=== PATIENT | male | born 1960 | race Two or more races ===

== ENCOUNTER 2024-02-10 13:57 | Inpatient (IN) | payer OTHER, MEDICAID ==
[~2024-02-10] VITALS: Ht 165.1 cm; Wt 95.7 kg
[2024-02-10 15:59] LABS: Basophils # (auto) 0 10 ^3/uL (0-0.2); Basophils % (auto) 0.2 % (0.0-2.0); Eosinophils # (auto) 0 10 ^3/uL (0-0.8); Hematocrit 43.9 % (41.0-53.0); Hemoglobin 14.5 g/dL (13.5-17.5); Lymphocytes # (auto) 1.2 10 ^3/uL (0.4-5.4); Lymphocytes % (auto) 5.9 % (10.0-50.0); Mean Corpuscular Hemoglobin 31.4 pg (28.0-32.0); Mean Corpuscular Hgb Conc. 33.2 g/dL (32.0-36.0); Mean Corpuscular Volume 94.6 fL (80.0-100.0); Monocytes # (auto) 1.1 10 ^3/uL (0-1.3); Monocytes % (auto) 5.8 % (0.0-12.0); Neutrophils # (auto) 17.1 10 ^3/uL (1.6-8.6); Neutrophils % (auto) 88.1 % (37.0-80.0); Red Blood Cells 4.63 10^6/uL (4.5-5.90); Red Cell Distribution Width 14.8 % (11.8-14.3); White Blood Cell 19.4 10^3/uL (4.4-10.8)
[2024-02-10 16:08] LABS: Anion Gap 9 (5-15); Carbon Dioxide 24 mmol/L (20-30); Chloride 104 mmol/L (98-107); Potassium 4.2 mmol/L (3.5-5.1); Sodium 137 mmol/L (136-145)
[2024-02-10 16:09] LABS: Calcium 10.2 mg/dL (8.7-10.4)
[2024-02-10 16:12] LABS: Urine Bacteria FEW /hpf (None Seen); Urine Blood 1+ /uL (Negative); Urine Clarity Clear (Clear); Urine Color Yellow (Yellow); Urine Mucus FEW (None Seen); Urine Protein, UAD TRACE (Negative); Urine Specific Gravity 1.016 (1.001-1.035); Urine Urobilinogen Normal (Negative); Urine WBC 88 /hpf (0 - 3)
[2024-02-10 16:14] LABS: BUN/Creatinine Ratio 6.3 (10.0-20.0); Blood Urea Nitrogen 6 mg/dL (9-23); Glucose 104 mg/dL (74-106)
[2024-02-10 18:30] VITALS: PULSE 115; RESP 18; O2SAT 96
[2024-02-10] MEDS: cefTRIAXone 1GM/50ML D5W 50 ML IV ONE (18:35)
[2024-02-10] MEDS: SULFAMETHOX W/TRIMETH(800/160MG) DS TAB PO ONE (18:35)
[2024-02-10] MEDS ORDERED: DOCUSATE SOD 100 MG CAP PO PRN (20:30)
[2024-02-10] MEDS ORDERED: ONDANSETRON HCL 4 MG/2 ML VIAL IV PRN (20:30)
[2024-02-10] MEDS ORDERED: HYDROcodone-ACET 5/325MG TAB PO PRN (20:30)
[2024-02-10] MEDS: ACETAMINOPHEN 325 MG TAB PO ONE (20:52)
[2024-02-10] MEDS: SODIUM CHLOR 0.9% PF (SALINE LOCK) 10ML VIAL/SYR IV SCH (22:00)
[2024-02-11] VITALS (10 sets, daily range): BP systolic 111–130; BP diastolic 63–78; PULSE 82–100; RESP 17–20; TEMP 97.7–100.9; O2SAT 92–98
[2024-02-11] MEDS: ENOXAPARIN SOD 40 MG/0.4 ML SYRINGE SC SCH (09:43)
[2024-02-11] MEDS ORDERED: AMLO1TAB23 PO (09:48)
[2024-02-11] MEDS ORDERED: LOSA-534 PO (09:48)
[2024-02-11] MEDS: cefTRIAXone 2GM/50ML D5W 50 ML IV SCH (22:02)
[2024-02-12] VITALS (8 sets, daily range): BP systolic 102–119; BP diastolic 55–77; PULSE 63–88; RESP 16–17; TEMP 97.8–99.1; O2SAT 69–99
[2024-02-12] MEDS: ACETAMINOPHEN 325 MG TAB PO PRN (00:24)
[2024-02-12] MEDS: SODIUM CHLORIDE 0.9% 1,000 ML IV SCH (23:30)
[2024-02-13 01:00] VITALS: BP 134/82; PULSE 67; RESP 17; TEMP 98.3; O2SAT 95
[2024-02-13 05:00] VITALS: BP 126/86; PULSE 64; RESP 16; TEMP 98.4; O2SAT 97
[2024-02-13 08:00] VITALS: PULSE 63; PULSE 74; RESP 17; O2SAT 98
[2024-02-13 09:00] VITALS: BP 148/99; PULSE 68; RESP 20; TEMP 98.3; O2SAT 100
[2024-02-13] MEDS ORDERED: CIPR-173 PO (10:05)
== END 2024-02-13 12:30 | disposition home or self-care (01) | DRG 871 ==
LOC: ER 13:57 → TELE 20:28 → TELE-E-ADS 23:14
PROVIDERS: ADMIT Internal Medicine; ATTEND Family Medicine
DX: A41.9 Sepsis, unspecified organism (principal); G93.41 Metabolic encephalopathy; N10 Acute pyelonephritis; N13.8 Other obstructive and reflux uropathy; E11.9 Type 2 diabetes mellitus without complications; I10 Essential (primary) hypertension; E86.0 Dehydration; N40.1 Benign prostatic hyperplasia with lower urinary tract symptoms; B96.1 Klebsiella pneumoniae [K. pneumoniae] as the cause of diseases classified elsewhere
CPT/HCPCS: 36415; 71045; 74176; 80048; 81001; 82962; 83605; 85025; 87040; 87086; 87088; 87186; 96365; 99291; G0378

== ENCOUNTER 2024-02-29 02:50 | Emergency (ER) | payer OTHER, MEDICAID ==
[~2024-02-29] VITALS: Ht 165.1 cm; Wt 87.0 kg
[~2024-02-29 02:50] MED LIST: AMLO1TAB23 PO; CIPR-173 PO; LOSA-534 PO
[2024-02-29 03:23] LABS: Urine Bacteria None Seen /hpf (None Seen)
[2024-02-29 03:28] LABS: Urine Blood Negative /uL (Negative); Urine Clarity Clear (Clear); Urine Color Colorless (Yellow); Urine Protein, UAD Negative (Negative); Urine Specific Gravity 1.003 (1.001-1.035); Urine Urobilinogen Normal (Negative); Urine WBC <1 /hpf (0 - 3); Urine pH 6.5 (5.0-9.0)
[2024-02-29] MEDS: cefTRIAXone SOD 1,000 MG VL ONE (06:19)
[2024-02-29 06:20] VITALS: BP 137/95; PULSE 82; RESP 16; TEMP 98.2; O2SAT 96
[2024-02-29] MEDS: cefTRIAXone W LIDOCAINE 1 GM IM IM ONE (06:20)
[2024-02-29] MEDS: cloNIDine HCL 0.1 MG TAB PO ONE (06:26)
== END 2024-02-29 06:27 | disposition home or self-care (01) ==
LOC: ER 02:50
DX: R10.9 Unspecified abdominal pain (principal); I10 Essential (primary) hypertension; E11.9 Type 2 diabetes mellitus without complications; Z98.890 Other specified postprocedural states; Z79.899 Other long term (current) drug therapy
CPT/HCPCS: 81001; 96372; 99283; J0696

== ENCOUNTER 2024-03-04 00:48 | Emergency (ER) | payer OTHER, MEDICAID ==
[~2024-03-04] VITALS: Ht 165.1 cm; Wt 85.3 kg
[2024-03-04 01:49] LABS: Urine Bacteria None Seen /hpf (None Seen)
[2024-03-04 02:04] LABS: Urine Blood Negative /uL (Negative); Urine Clarity Clear (Clear); Urine Color Colorless (Yellow); Urine Protein, UAD Negative (Negative); Urine Specific Gravity 1.011 (1.001-1.035); Urine Urobilinogen Normal (Negative); Urine WBC 1 /hpf (0 - 3)
[2024-03-04 03:08] LABS: Basophils # (auto) 0 10 ^3/uL (0-0.2); Basophils % (auto) 0.6 % (0.0-2.0); Eosinophils # (auto) 0.1 10 ^3/uL (0-0.8); Eosinophils % (auto) 1.7 % (0.0-7.0); Hematocrit 37.9 % (41.0-53.0); Lymphocytes # (auto) 2.1 10 ^3/uL (0.4-5.4); Lymphocytes % (auto) 35.4 % (10.0-50.0); Mean Corpuscular Hemoglobin 31.5 pg (28.0-32.0); Mean Corpuscular Hgb Conc. 34.3 g/dL (32.0-36.0); Monocytes # (auto) 0.6 10 ^3/uL (0-1.3); Monocytes % (auto) 9.1 % (0.0-12.0); Neutrophils # (auto) 3.2 10 ^3/uL (1.6-8.6); Neutrophils % (auto) 53.2 % (37.0-80.0); Nucleated Red Blood Cells % 0.1 %; Red Blood Cells 4.12 10^6/uL (4.5-5.90); Red Cell Distribution Width 14.4 % (11.8-14.3); White Blood Cell 6.1 10^3/uL (4.4-10.8)
[2024-03-04 03:13] LABS: Alanine Aminotransferase 34 U/L (7-40); Albumin 4.5 g/dL (3.2-4.8); Alkaline Phosphatase 80 U/L (46-116); Anion Gap 6 (5-15); Aspartate Aminotransferase 14 U/L (13-40); Bilirubin, Total 0.5 mg/dL (0.2-1.0); Blood Urea Nitrogen 11 mg/dL (9-23); Calcium 9.6 mg/dL (8.7-10.4); Carbon Dioxide 27 mmol/L (20-30); Chloride 108 mmol/L (98-107); Glucose 107 mg/dL (74-106); Potassium 3.9 mmol/L (3.5-5.1); Sodium 141 mmol/L (136-145); Total Protein 7.6 g/dL (5.7-8.2)
[2024-03-04 05:21] VITALS: BP 143/89; PULSE 63; RESP 18; TEMP 97.8; O2SAT 98
[2024-03-04] MEDS ORDERED: NAP500T GT (06:11)
== END 2024-03-04 06:26 | disposition home or self-care (01) ==
LOC: ER 00:48
DX: R10.9 Unspecified abdominal pain (principal); E11.9 Type 2 diabetes mellitus without complications; I10 Essential (primary) hypertension; Z79.891 Long term (current) use of opiate analgesic; Z98.890 Other specified postprocedural states
CPT/HCPCS: 36415; 74176; 80053; 81001; 85025

== ENCOUNTER 2024-05-31 02:00 | Inpatient (IN) | payer OTHER, MEDICAID ==
[~2024-05-31] VITALS: Ht 165.1 cm; Wt 87.5 kg
[~2024-05-31 02:00] MED LIST changes: +CLON0.2T PO; +NAP500T GT
--- NOTE | 2024-05-31 02:27 | ED.PDOC ---
History of Present Illness HPI Comments 64-year-old male who came to ER due to flank pains. Patient has been experiencing bilateral flank pain since yesterday, left worse than the right. Denies any urinary symptoms such as dysuria or gross hematuria. Is concerned that he might have pyelonephritis again, just like last January 2024 where he got admitted. Chief Complaint: Flank Pain Time Seen by MD: 02:27 Reviewed Notes: Nurses Notes Allergies: Coded Allergies: NO KNOWN ALLERGIES (Unverified , 02/10/24) Home Meds Active Scripts Clonidine Hydrochloride (Clonidine Hcl) 0.2 Mg Tab, 1 TAB PO BIDP PRN, #10 TAB 0 Refills To be used if systolic pressures above 160 or diastolic pressures above 90. Prov:OMAR DURANT PAC 03/10/24 Naproxen (NAPROSYN TABLET) 500 Mg Tb, 500 MG GT BID for 10 Days, #20 TAB Prov:IFEANYI VAZQUEZ MD 03/04/24 Ciprofloxacin Hcl (Cipro) 500 Mg Tab, 1 TAB PO BID, #20 TAB Prov:TEMO DODSON MD 02/13/24 Reported Medications Losartan Potassium (Losartan Potassium) 50 Mg Tab, 50 MG PO BID, TAB 02/11/24 Amlodipine Besylate (Amlodipine Besylate) 10 Mg Tab, 1 TAB PO DAILY, #30 TAB 5 Refills 02/11/24 Information Source: Patient Mode of Arrival: Ambulatory Severity: Moderate Timing: Hours Duration: Intermittent Prehospital treatment: None Past Medical History PAST MEDICAL HISTORY: DM, HTN, UTI'S Surgical History: Hernia Repair Family History Family History: Reviewed,noncontributory to illness Social History Smoker: Non-Smoker Alcohol: Denies ETOH Use Drugs: Denies Drug Use Lives In: Home Constitutional: denies: chills, diaphoresis, fatigue, fever, malaise, sweats, weakness, others EENTM: denies: blurred vision, double vision, ear bleeding, ear discharge, ear drainage, ear pain, ear ringing, eye pain, eye redness, hearing loss, mouth pain, mouth swelling, nasal discharge, nose bleeding, nose congestion, nose pain, photophobia, tearing, throat pain, throat swelling, voice changes, others Respiratory: denies: cough, hemoptysis, orthopnea, SOB at rest, shortness of breath, SOB with excertion, stridor, wheezing, others Cardiovascular: denies: chest pain, dizzy spells, diaphoresis, Dyspnea on exertion, edema, irregular heart beat, left arm pain, lightheadedness, palpitations, PND, syncope, others Gastrointestinal: denies: abdomen distended, abdominal pain, blood streaked bowels, constipated, diarrhea, dysphagia, difficulty swallowing, hematemesis, melena, nausea, poor appetite, poor fluid intake, rectal bleeding, rectal pain, vomiting, others Genitourinary: reports: flank pain; denies: burning, dysuria, frequency, hematuria, incontinence, penile discharge, penile sore, pain, testicle pain, testicle swelling, urgency, others Neurological: denies: dizziness, fainting, headache, left sided numbness, left sided weakness, numbness, paresthesia, pre-existing deficit, right sided numbness, right sided weakness, seizure, speech problems, tingling, tremors, weakness, others Musculoskeletal: reports: back pain; denies: gout, joint pain, joint swelling, muscle pain, muscle stiffness, neck pain, others Integumetry: denies: bruises, change in color, change in hair/nails, dryness, laceration, lesions, lumps, rash, wounds, others Allergic/Immunocompromised: denies: Difficulty Healing, Frequent Infections, Hives, Itching, others Hematologic/Lymphatic: denies: anemia, blood clots, easy bleeding, easy bruising, swollen glands, others Endocrine: denies: excessive hunger, excessive sweating, excessive thirst, excessive urination, flushing, intolerance to cold, intolerance to heat, unexplained weight gain, unexplained weight loss, others Psychiatric: denies: anxiety, bipolar disorder, depression, hopeless, panic disorder, schizophrenia, sleepless, suicidal, others Physical Exam General Appearance: No Apparent Distress, Normal HEENT: Normal ENT Inspection, Pharynx Normal, TMs Normal Neck: Full Range of Motion, Non-Tender, Normal, Normal Inspection Respiratory: Chest Non-Tender, Lungs Clear, No Accessory Muscle Use, No Respiratory Distress, Normal Breath Sounds Cardiovascular: No Edema, No JVD, No Murmur, No Gallop, Normal Peripheral Pulses, Regular Rate/Rhythm Breast Exam: Deferred Gastrointestinal: No Organomegaly, Non Tender, No Pulsatile Mass, Normal Bowel Sounds, Soft, Tenderness (Left CVA) Genitalia: Deferred Pelvic: Deferred Rectal: Deferred Extremities: No calf tenderness, Normal capillary refill, Normal inspection, Normal range of motion, Non-tender, No pedal edema Musculoskeletal : Apperance: Normal Neurologic: Alert, 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 Was a procedure done?: No Differential Dx Considerations may include: Anemia, electrolyte imbalance, urinary tract infection, kidney stones, sepsis musculoskeletal pain X-Ray, Labs, Meds, VS Vital Signs Date Time Temp Pulse Resp B/P (MAP) Pulse Ox O2 Delivery O2 Flow Rate FiO2 05/31/24 02:09 98.5 109 16 140/88 (105) 98 Lab Test 05/31/24 02:33 05/31/24 02:11 Range/Units White Blood Count 6.6 4.4-10.8 10^3/uL Red Blood Count 4.29 L 4.5-5.90 10^6/uL Hemoglobin 13.3 L 13.5-17.5 g/dL Hematocrit 39.9 L 41.0-53.0 % Mean Corpuscular Volume 93.1 80.0-100.0 fL Mean Corpuscular Hemoglobin 31.1 28.0-32.0 pg Mean Corpuscular Hemoglobin Concent 33.4 32.0-36.0 g/dL Red Cell Distribution Width 14.8 H 11.8-14.3 % Platelet Count 289 140-450 10^3/uL Mean Platelet Volume 7.4 6.9-10.8 fL Neutrophils (%) (Auto) 57.9 37.0-80.0 % Lymphocytes (%) (Auto) 33.4 10.0-50.0 % Monocytes (%) (Auto) 6.7 0.0-12.0 % Eosinophils (%) (Auto) 1.6 0.0-7.0 % Basophils (%) (Auto) 0.4 0.0-2.0 % Neutrophils # (Auto) 3.8 1.6-8.6 10 ^3/uL Lymphocytes # (Auto) 2.2 0.4-5.4 10 ^3/uL Monocytes # (Auto) 0.4 0-1.3 10 ^3/uL Eosinophils # (Auto) 0.1 0-0.8 10 ^3/uL Basophils # (Auto) 0 0-0.2 10 ^3/uL Nucleated Red Blood Cells 0.0 % Sodium Level 142 136-145 mmol/L Potassium Level 3.8 3.5-5.1 mmol/L Chloride Level 108 H 98-107 mmol/L Carbon Dioxide Level 26 20-31 mmol/L Anion Gap 8 5-15 Blood Urea Nitrogen 10 9-23 mg/dL Creatinine 1.03 0.700-1.30 mg/dL Glomerular Filtration Rate Calc 81 >90 mL/min BUN/Creatinine Ratio 9.7 L 10.0-20.0 Serum Glucose 127 H 74-106 mg/dL Calcium Level 9.8 8.7-10.4 mg/dL Urine Color Colorless Yellow Urine Clarity Clear Clear Urine pH 6.0 5.0-9.0 Urine Specific [place] 1.003 1.001-1.035 Urine Protein Negative Negative Urine Ketones Negative Negative Urine Blood Negative Negative /uL Urine Nitrite Negative Negative Urine Bilirubin Negative Negative Urine Urobilinogen Normal Negative mg/dL Urine Leukocyte Esterase Negative Negative /uL Urine RBC <1 0 - 3 /hpf Urine WBC <1 0 - 3 /hpf Urine Squamous Epithelial Cells None seen <5 /hpf Urine Bacteria None seen None Seen /hpf Urine Glucose Normal Normal mg/dL PROCEDURE(s): ABPL - CT AB PEL WO CON-NO ORAL OR IV CT ABDOMEN: Visualized lower thorax: The evaluation of lung bases demonstrates no focal infiltrates or pleural effusion. The liver is normal in size. There is no intrahepatic biliary radicle dilatation. The gallbladder is normal and reveals no intrinsic abnormality. The common bile duct is not dilated. The pancreas is normal in size and shape. No focal lesion is seen within. The peripancreatic fat planes are normal. The spleen is normal in size and does not show any focal abnormality. Both adrenal glands are normal in size and morphology in this unenhanced CT scan. There is no significant retroperitoneal lymphadenopathy. The kidneys are normal in size with no hydronephrosis or renal calculi. Vessels: Scattered calcific atherosclerotic aorto-iliac plaques noted. Otherwise, the aorta, IVC and the mesenteric vessels cannot be commented in this unenhanced CT scan. Stomach and bowel: Small fat filled umbilical hernia. Left indirect inguinal omentocele. The bowel loops are unremarkable. There is no ascites. Skeletal system: Mild degenerative changes in the visualized thoracolumbar spine. Sclerotic lesion of approximate size 10 mm in the L4 vertebral body. Advised further evaluation with MRI lumbar spine without contrast if clinically indicated. Hemangioma noted in the T11 vertebral body. Grade 1 anterolisthesis of L5 over S1 vertebra due to break in pars interarticularis on the right side. The pelvic bones are unremarkable. CT PELVIS: Appendix: The appendix is unremarkable in appearance. Colon: Scattered colonic diverticula noted, predominantly in the sigmoid colon. Circumferential soft tissue density wall thickening noted in the sigmoid colon, due to underdistension / infective / inflammatory etiology like sigmoiditis. The rectum is unremarkable. Urinary bladder: Partially distended urinary bladder with circumferential, soft tissue density urinary bladder wall thickening (up to approximately 6 mm wall thickness), probably due to underdistension / cystitis. Advised urinalysis correlation. Pelvic organs: The prostate gland is enlarged in size (measuring approximately 6.3 x 5.1 x 6.1 cm with approximate volume 102 mL) with the median lobe indenting the base of the urinary bladder along with prostatic parenchymal calcifications. No significant pelvic lymphadenopathy is identified. No abnormal fluid collection is seen. IMPRESSION: 1. Scattered colonic diverticula noted, predominantly in the sigmoid colon. 2. Circumferential soft tissue density wall thickening noted in the sigmoid colon, due to underdistension / infective / inflammatory etiology like sigmoiditis. 3. No perisigmoid mesenteric fat stranding or free fluid or any collection. 4. No abdominal mass or adenopathy. 5. No ascites. 6. No free air. 7. Chronic and / or ancillary findings as described above. Time of 1ST Reevaluation: 02:20 Reevaluation 1ST: Unchanged Patient Education/Counseling: Diagnosis, Treatment Family Education/Counseling: No Family Present Departure 1 Departure Time of Disposition: 04:51 (Patient with sigmoiditis. We will treat patient with antibiotics and admit) Impression: Primary Impression: Sigmoiditis Disposition: 09 ADMITTED INPATIENT Admit to: Med Surg Condition: Serious Critical Care Note Critical Care Time?: Yes Critical care comment: Intractable flank pain Authorized and Performed by: Aimee Leone MD Total critical care time: Approximately 33 minutes Due to a high probability of clinically significant, life threatening deterioration, the patient required my highest level of preparedness to intervene emergently and I personally spent this critical care time directly and personally managing the patient. This critical care time included obtaining a history; examining the patient; pulse oximetry; ordering and review of studies; arranging urgent treatment with development of a management plan; evaluation of patient's response to treatment; frequent reassessment; and, discussions with other providers. This critical care time was performed to assess and manage the high probability of imminent, life-threatening deterioration that could result in multi-organ failure. It was exclusive of separately billable procedures and treating other patients and teaching time. Please see my other sections and the rest of the note for further information on patient assessment and treatment. Stability Stability form required: No Heart Score Heart Score: Heart Score Response (Comments) Value History N/A 0 EKG N/A 0 Age N/A 0 Risk Factors N/A 0 Troponin N/A 0 Total 0 I personally scribed for AIMEE LEONE MD ([email or web address]) on 05/31/24 at 02:27. Electronically submitted by Osman Hilton ([employer]). I personally scribed for AIMEE LEONE MD ([email or web address]) on 05/31/24 at 04:51. Electronically submitted by Osman Hilton ([email or web address]). AIMEE LEONE MD May 31, 2024 02:27
[2024-05-31] MEDS ORDERED: HYDROcodone-ACET 5/325MG TAB PO ONE (02:30)
[2024-05-31 02:33] LABS: Urine Bacteria None Seen /hpf (None Seen)
[2024-05-31 03:16] LABS: Chloride 108 mmol/L (98-107); Potassium 3.8 mmol/L (3.5-5.1); Sodium 142 mmol/L (136-145)
[2024-05-31 03:17] LABS: Anion Gap 8 (5-15); Calcium 9.8 mg/dL (8.7-10.4); Carbon Dioxide 26 mmol/L (20-31)
[2024-05-31 03:18] LABS: Basophils # (auto) 0 10 ^3/uL (0-0.2); Basophils % (auto) 0.4 % (0.0-2.0); Eosinophils # (auto) 0.1 10 ^3/uL (0-0.8); Eosinophils % (auto) 1.6 % (0.0-7.0); Hematocrit 39.9 % (41.0-53.0); Hemoglobin 13.3 g/dL (13.5-17.5); Lymphocytes # (auto) 2.2 10 ^3/uL (0.4-5.4); Lymphocytes % (auto) 33.4 % (10.0-50.0); Mean Corpuscular Hemoglobin 31.1 pg (28.0-32.0); Mean Corpuscular Hgb Conc. 33.4 g/dL (32.0-36.0); Mean Corpuscular Volume 93.1 fL (80.0-100.0); Monocytes # (auto) 0.4 10 ^3/uL (0-1.3); Monocytes % (auto) 6.7 % (0.0-12.0); Neutrophils # (auto) 3.8 10 ^3/uL (1.6-8.6); Neutrophils % (auto) 57.9 % (37.0-80.0); Platelet Count (auto) 289 10^3/uL (140-450); Red Blood Cells 4.29 10^6/uL (4.5-5.90); Red Cell Distribution Width 14.8 % (11.8-14.3); White Blood Cell 6.6 10^3/uL (4.4-10.8)
[2024-05-31 03:19] LABS: Urine Blood Negative /uL (Negative); Urine Clarity Clear (Clear); Urine Color Colorless (Yellow); Urine Protein, UAD Negative (Negative); Urine Specific Gravity 1.003 (1.001-1.035); Urine Urobilinogen Normal (Negative); Urine WBC <1 /hpf (0 - 3)
[2024-05-31 03:22] LABS: BUN/Creatinine Ratio 9.7 (10.0-20.0); Blood Urea Nitrogen 10 mg/dL (9-23); Glucose 127 mg/dL (74-106)
--- NOTE | 2024-05-31 04:11 | DVH ---
Examination: ABPL CLINICAL INDICATION: left flank pain COMPARISON: None. CONTRAST USED: None. TECHNIQUE: A plain CT study of the abdomen and pelvis is performed. The examination was performed w ith [address] scan is done according to ALARA (As Low as Reasonably Achievable). Multipl nael reconstructions were obtained. FINDINGS: The lack of intravenous contrast limits evaluation of solid organ and other structures, differentiati on / separation and intraluminal evaluation of vessels and ureter from surrounding structures, and ev aluation of organ or abnormal enhancement. CT ABDOMEN: Visualized lower thorax: The evaluation of lung bases demonstrates no focal infiltrates or pleural effusion. Unenhanced liver: The liver is normal in size. There is no intrahepatic biliary radicle dilatation. Gallbladder: The gallbladder is normal and reveals no intrinsic abnormality. The common bile duct is not dilated. Unenhanced pancreas: The pancreas is normal in size and shape. No focal lesion is seen within. The peripancreatic fat planes are normal. Unenhanced spleen: The spleen is normal in size and does not show any focal abnormality. Retroperitoneum: Both adrenal glands are normal in size and morphology in this unenhanced CT scan. There is no significant retroperitoneal lymphadenopathy. The kidneys are normal in size with no hydronephrosis or renal calculi. Vessels: Scattered calcific atherosclerotic aorto-iliac plaques noted. Otherwise, the aorta, IVC and the mesen teric vessels cannot be commented in this unenhanced CT scan. Stomach and bowel: Small fat filled umbilical hernia. Left indirect inguinal omentocele. The bowel loops are unremarkable. There is no ascites. Skeletal system: Mild degenerative changes in the visualized thoracolumbar spine. Sclerotic lesion of approximate size 10 mm in the L4 vertebral body. Advised further evaluation with MRI lumbar spine without contrast if clinically indicated. Hemangioma noted in the T11 vertebral body. Grade 1 anterolisthesis of L5 over S1 vertebra due to break in pars interarticularis on the right janice e. The pelvic bones are unremarkable. CT PELVIS: Appendix: The appendix is unremarkable in appearance. Colon: Scattered colonic diverticula noted, predominantly in the sigmoid colon. Circumferential soft tissue density wall thickening noted in the sigmoid colon, due to underdistensio n / infective / inflammatory etiology like sigmoiditis. The rectum is unremarkable. Urinary bladder: Partially distended urinary bladder with circumferential, soft tissue density urinary bladder wall th ickening (up to approximately 6 mm wall thickness), probably due to underdistension / cystitis. Advis ed urinalysis correlation. Pelvic organs: The prostate gland is enlarged in size (measuring approximately 6.3 x 5.1 x 6.1 cm with approximate v olume 102 mL) with the median lobe indenting the base of the urinary bladder along with prostatic par enchymal calcifications. No significant pelvic lymphadenopathy is identified. No abnormal fluid collection is seen. IMPRESSION: 1. Scattered colonic diverticula noted, predominantly in the sigmoid colon. 2. Circumferential soft tissue density wall thickening noted in the sigmoid colon, due to underdiste nsion / infective / inflammatory etiology like sigmoiditis. 3. No perisigmoid mesenteric fat stranding or free fluid or any collection. 4. No abdominal mass or adenopathy. 5. No ascites. 6. No free air. 7. Chronic and / or ancillary findings as described above. Electronically Signed 05/31/2024 04:04 Dylon Rodriguez
[2024-05-31] MEDS: IBUPROFEN 800 MG TAB PO ONE (04:15)
--- NOTE | 2024-05-31 05:43 | DVHHPRES ---
History of Present Illness Resident Creating Document: JOHNNY GILMAN RESIDENT History of Present Illness This is a 64-year-old male with past medical history of hypertension, BPH presented to the ED with a chief complaint of left flank pain and chills for 1 day prior to this admission Patient has been experiencing bilateral flank pain since yesterday, mostly on the left side and and than the right, crampy in nature 5/10 with no aggravating factor and relieved after bowel movement associated with chills. He also mentioned that he was having altered bowel habit for last 1 month mostly constipation and he mostly took cranberry juice to relieve the constipation. Family history began for colon cancer and mostly on the maternal side and his last colonoscopy was more than 10 years ago. Patient also mentioned he has elevated PSA level and he did 2 times prostate biopsy which came back normal and he is following with urologist. PCP: Dr. Glen Donohue Cardiovascular: HTN GI: Constipation Renal/: UTI, Benign prostatic enlarg. Past Surgical History Hernia repair 1 year ago Family History Family history significant for colon cancer and mostly on the maternal side Smoke: No ALCOHOL: occassional Drugs: None Lives: with Family Review of Systems Constitutional: Yes: Chills; No: Fever, Sweats, Weakness, Malaise, Other Eyes: No: Pain, Vision change, Conjunctivae inflammation, Eyelid inflammation, Other, Redness ENT: No: Ear pain, Ear discharge, Nose pain, Nose discharge, Nose congestion, Mouth pain, Mouth swelling, Throat pain, Throat swelling, Other Respiratory: No: Cough, Dry, Shortness of breath, SOB with excertion, Wheezing, Hemoptysis, Pleuritic Pain, Sputum, Wheezing, Other Cardiovascular: No: Chest Pain, Palpitations, Orthopnea, Paroxysmal Noc. Dyspne a, Edema, Lt Headedness, Other Gastrointestinal: Abdominal Pain, Constipation; No: Nausea, Vomiting, Diarrhea, Melena, Hematochezia, Other Genitourinary: No Dysuria, No Frequency, No Incontinence, No Hematuria, No Retention, No Other Musculoskeletal: No: other, neck pain, shoulder pain, arm pain, back pain, hand pain, leg pain, foot pain Skin: No: Rash, Lesions, Jaundice, Bruising, Other Neurological: No: Weakness, Numbness, Incoordination, Change in speech, Confusion, Seizures, Other Allergies: Coded Allergies: NO KNOWN ALLERGIES (Unverified , 02/10/24) Medications Current Medications Medications Dose Ordered Sig/Abraham Route Start Time Stop Time Status Last Admin Dose Admin Sodium Chloride 10 ml Q8HR IV 05/31/24 06:00 UNV Sodium Chloride 1,000 ml @ 75 mls/hr [id number] IV 05/31/24 05:45 UNV Acetaminophen 325 mg Q4HP PRN PO 05/31/24 05:45 UNV Acetaminophen/ Hydrocodone Bitart 1 tab Q4HP PRN PO 05/31/24 05:45 UNV Ondansetron HCl 4 mg Q4HP PRN IV 05/31/24 05:45 UNV Enoxaparin Sodium 40 mg DAILY SC 05/31/24 10:00 UNV Morphine Sulfate 2 mg Q4HPRN PRN IV 05/31/24 05:45 UNV Nitroglycerin 0.4 mg Q5MINP PRN SL 05/31/24 05:45 UNV Morphine Sulfate 2 mg Q30M PRN IV 05/31/24 05:45 UNV Exam Vital Signs Vital Signs Date Time Temp Pulse Resp B/P (MAP) Pulse Ox O2 Delivery O2 Flow Rate FiO2 05/31/24 02:09 98.5 109 16 140/88 (105) 98 General Appearance: Alert, Oriented X3, Cooperative, No acute distress, mild distress HEENT: Atraumatic, PERRLA, EOMI, Mucous membr. moist/pink Respiratory: Clear to auscultation, Normal air movement Cardiovascular: Regular rate, Normal S1, Normal S2, No murmurs Abdominal: Normal bowel sounds, Soft, No tenderness, No hepatospenomegaly, No masses Extremities: No clubbing, No cyanosis, No edema, Normal pulses, No tenderness/swelling Skin: No rashes, No breakdown, No significant lesion Neuro: Normal gait, Normal speech, Strength at 5/5 X4 ext, Normal tone, Sensation intact, Other (Grossly intact cranial nerves) Psych/Mental Status: Mental status NL, Mood NL Labs/Xrays Labs Test 05/31/24 02:33 05/31/24 02:11 Range/Units White Blood Count 6.6 4.4-10.8 10^3/uL Red Blood Count 4.29 L 4.5-5.90 10^6/uL Hemoglobin 13.3 L 13.5-17.5 g/dL Hematocrit 39.9 L 41.0-53.0 % Mean Corpuscular Volume 93.1 80.0-100.0 fL Mean Corpuscular Hemoglobin 31.1 28.0-32.0 pg Mean Corpuscular Hemoglobin Concent 33.4 32.0-36.0 g/dL Red Cell Distribution Width 14.8 H 11.8-14.3 % Platelet Count 289 140-450 10^3/uL Mean Platelet Volume 7.4 6.9-10.8 fL Neutrophils (%) (Auto) 57.9 37.0-80.0 % Lymphocytes (%) (Auto) 33.4 10.0-50.0 % Monocytes (%) (Auto) 6.7 0.0-12.0 % Eosinophils (%) (Auto) 1.6 0.0-7.0 % Basophils (%) (Auto) 0.4 0.0-2.0 % Neutrophils # (Auto) 3.8 1.6-8.6 10 ^3/uL Lymphocytes # (Auto) 2.2 0.4-5.4 10 ^3/uL Monocytes # (Auto) 0.4 0-1.3 10 ^3/uL Eosinophils # (Auto) 0.1 0-0.8 10 ^3/uL Basophils # (Auto) 0 0-0.2 10 ^3/uL Nucleated Red Blood Cells 0.0 % Sodium Level 142 136-145 mmol/L Potassium Level 3.8 3.5-5.1 mmol/L Chloride Level 108 H 98-107 mmol/L Carbon Dioxide Level 26 20-31 mmol/L Anion Gap 8 5-15 Blood Urea Nitrogen 10 9-23 mg/dL Creatinine 1.03 0.700-1.30 mg/dL Glomerular Filtration Rate Calc 81 >90 mL/min BUN/Creatinine Ratio 9.7 L 10.0-20.0 Serum Glucose 127 H 74-106 mg/dL Calcium Level 9.8 8.7-10.4 mg/dL Urine Color Colorless Yellow Urine Clarity Clear Clear Urine pH 6.0 5.0-9.0 Urine Specific [place] 1.003 1.001-1.035 Urine Protein Negative Negative Urine Ketones Negative Negative Urine Blood Negative Negative /uL Urine Nitrite Negative Negative Urine Bilirubin Negative Negative Urine Urobilinogen Normal Negative mg/dL Urine Leukocyte Esterase Negative Negative /uL Urine RBC <1 0 - 3 /hpf Urine WBC <1 0 - 3 /hpf Urine Squamous Epithelial Cells None seen <5 /hpf Urine Bacteria None seen None Seen /hpf Urine Glucose Normal Normal mg/dL Assessment/Plan Assessment/Plan Assessment and plan: # Left flank pain likely due to sigmoiditis, rule out colonic malignancy - Complaining of left flank pain, chills and constipation - CT abdomen pelvis revealed circumferential soft tissue density wall thickening noted in the sigmoid colon, due to under distension / infective / inflammatory etiology like sigmoiditis. - clear liquid diet - IV normal saline at 75 mL/hour - IV morphine 2 mg q.4 p.r.n. - IV ondansetron 4 mg q.4 p.r.n. - IV ceftriaxone 1 g daily and IV metronidazole 500 mg t.i.d. - FOBT - CEA - GI consultation # History of BPH - Flomax 0.4 mg daily # Hypertensive heart disease - Losartan 50 mg p.o. b.i.d. # PUD prophylaxis - Protonix 40 mg p.o. daily # DVT prophylaxis - Lovenox 40 mg sc daily Goal of care discussed with the patient for more than 20 minutes full code Plan of treatment discussed with Dr. Hammonds Plan discussed with: Patient, Other My Orders Orders - JOHNNY GILMAN RESIDENT Procedure Category Date Status Time Admit ADMIT 05/31/24 Transmitted 05:32 Code Status CODE 05/31/24 Transmitted 05:32 Sodium Chloride Lock PHA 05/31/24 Logged (Saline Lock Ns) 06:00 Sodium Chloride 0.9% PHA 05/31/24 Logged 05:45 Acetaminophen Tablet PHA 05/31/24 Logged (Tylenol Tablet) 05:45 Hydrocodone-Acet PHA 05/31/24 Logged 5/325mg Tab ([place] 05:45 Ondansetron Hcl PHA 05/31/24 Logged (Zofran) 05:45 Enoxaparin Sodium PHA 05/31/24 Logged (Lovenox) 10:00 Complete Blood Count LAB 06/01/24 Verified 04:00 Comprehensive LAB 06/01/24 Verified Metabolic Panel 04:00 Clear Liq Diet DIET 05/31/24 Transmitted Breakfast Morphine Sulfate PHA 05/31/24 Logged Injection 05:45 Nitroglycerin PHA 05/31/24 Logged Sublingual (Ntrostat 05:45 Morphine Sulfate PHA 05/31/24 Logged Injection 05:45 Oxygen By Nasal RT 05/31/24 Transmitted Cannula 05:32 Stat Ekg For Chest [facility] 05/31/24 In Process Pain 05:32 Notify Md Of Changes [facility] 05/31/24 In Process From Base 05:32 Museum [employer] Scheduler For [facility] 05/31/24 In Process 24 Hours 05:32 Emergency Dysrhythmia [facility] 05/31/24 In Process Protocol 05:32 Rhythm Strips Once [facility] 05/31/24 In Process Every Shift 05:32 Ceftriaxone Ivpb PHA 05/31/24 Verified Rocephin 10:00 Metronidazole Ivpb PHA 05/31/24 Verified Flagyl 06:00 Thyroid Stimulating LAB 05/31/24 Verified Hormone 05:39 Chest Portable XY 05/31/24 Verified 05:39 Date of Service: May 31, 2024 Billing Provider: PHIL HAMMONDS MD Common Visit Codes: 24400-SDCYXOW INP/OBS CARE (HIGH) Secondary Visit Codes: 16405-[id number] CARE PLAN 30 MINUTES JOHNNY GILMAN RESIDENT May 31, 2024 05:43 PHIL HAMMONDS MD May 31, 2024 10:24
[2024-05-31] MEDS ORDERED: HYDROcodone-ACET 5/325MG TAB PO PRN (05:45)
[2024-05-31] MEDS ORDERED: ACETAMINOPHEN 325 MG TAB PO PRN (05:45)
[2024-05-31] MEDS ORDERED: MORPHINE SULFATE INJ 2 MG/ml SYRG IV PRN ×2 (05:45)
[2024-05-31] MEDS ORDERED: NITROGLYCERIN 0.4 MG SL TAB SL PRN (05:45)
[2024-05-31] MEDS ORDERED: ONDANSETRON HCL 4 MG/2 ML VIAL IV PRN (05:45)
[2024-05-31] MEDS: ONDANSETRON HCL 4 MG/2 ML VIAL IV ONE (05:57)
[2024-05-31] MEDS: MORPHINE SULFATE 4 MG/ML SYR/VIAL IV ONE (05:57)
[2024-05-31] MEDS: SODIUM CHLOR 0.9% PF (SALINE LOCK) 10ML VIAL/SYR IV SCH (06:00)
[2024-05-31] MEDS ORDERED: metroNIDAZOLE 500MG/100ML 100 ML IV SCH (06:00)
[2024-05-31] MEDS: SODIUM CHLORIDE 0.9% 1,850 ML IV ONE (06:00)
[2024-05-31] MEDS: SODIUM CHLORIDE 0.9% 1,000 ML IV SCH (06:00)
[2024-05-31] MEDS: ceFAZolin 2 GM/D5W50ml 50 ML IV ONE (06:00)
[2024-05-31] MEDS: metroNIDAZOLE 500MG/100ML 100 ML IV ONE (06:01)
[2024-05-31 06:35] LABS: Carcinoembryonic Antigen 1.3 ng/mL (<=5.0)
[2024-05-31] MEDS: PANTOPRAZOLE 40 MG TAB PO ONE (06:40)
--- NOTE | 2024-05-31 07:31 | DVH ---
CHEST RADIOGRAPH Indication:shortness of breath Technique: Single frontal view of the chest was obtained Comparison: XY CHEST PORTABLE on DOS: 02/10/24 FINDINGS: Lines and Tubes: None Lungs: No focal consolidation. Pleura: No effusion. No pneumothorax. Cardiomediastinal contours: Unremarkable Bones: No acute osseous abnormality. IMPRESSION: 1. No acute cardiopulmonary disease.
[2024-05-31 09:00] VITALS: BP 139/87; PULSE 61; RESP 16; TEMP 97.8; O2SAT 98
[2024-05-31 09:26] VITALS: PULSE 61; RESP 16; O2SAT 98
[2024-05-31] MEDS ORDERED: TAMS0.4C39 PO (09:34)
[2024-05-31] MEDS ORDERED: cefTRIAXone 1GM/50ML D5W 50 ML IV SCH (10:00)
[2024-05-31] MEDS ORDERED: CIPROFLOXACIN 400MG/200ML 200 ML IV SCH (10:00)
[2024-05-31] MEDS: LOSARTAN POTASSIUM 50 MG TAB PO SCH (12:06)
[2024-05-31] MEDS: ENOXAPARIN SOD 40 MG/0.4 ML SYRINGE SC SCH (12:07)
[2024-05-31] MEDS: cefTRIAXone 2GM/50ML D5W 50 ML IV SCH (12:07)
--- NOTE | 2024-05-31 12:49 | DVHINCON2 ---
GI Consult Consult Note GI consult note Date of Consultation: 05/31/2024 Chief Complaint: Sigmoiditis Referring Physician: Dr. Pisano H&P: 64-year-old male admitted with flank pain Patient denies abdominal pain. No nausea or vomiting Patient has noticed recent constipation, after hernia surgery, bowel movement one day ago. No melena or red blood in stool Patient last colonoscopy more than 10 years ago, patient has two maternal uncles diagnosed with colon cancer No weight loss Past Medical History: DM, HTN, UTI Past Surgical History: Hernia repair Social History: NO smoking, drinking ETOH and use of illegal drugs. Family History: As above Review of Systems: Constitutional: no fever, chill, weight loss HEENT: no eye pain, no hearing loss, no oral lesion, no scleral icterus Heart: no chest pain, no chest pressure Lung: no cough, no dyspnea with exertion Abdomen: see HPI Physical exam: General: NAD, AAOX3 Chest: lung pimentel clear to auscultation Heart: RRR, no murmur Abdomen: non-distended, no tenderness to palpation, +BS Labs: Labs Test 05/31/24 07:11 05/31/24 02:33 05/31/24 02:11 Range/Units Lactic Acid Level 0.7 0.4-2.0 mmol/L White Blood Count 6.6 4.4-10.8 10^3/uL Red Blood Count 4.29 L 4.5-5.90 10^6/uL Hemoglobin 13.3 L 13.5-17.5 g/dL Hematocrit 39.9 L 41.0-53.0 % Mean Corpuscular Volume 93.1 80.0-100.0 fL Mean Corpuscular Hemoglobin 31.1 28.0-32.0 pg Mean Corpuscular Hemoglobin Concent 33.4 32.0-36.0 g/dL Red Cell Distribution Width 14.8 H 11.8-14.3 % Platelet Count 289 140-450 10^3/uL Mean Platelet Volume 7.4 6.9-10.8 fL Neutrophils (%) (Auto) 57.9 37.0-80.0 % Lymphocytes (%) (Auto) 33.4 10.0-50.0 % Monocytes (%) (Auto) 6.7 0.0-12.0 % Eosinophils (%) (Auto) 1.6 0.0-7.0 % Basophils (%) (Auto) 0.4 0.0-2.0 % Neutrophils # (Auto) 3.8 1.6-8.6 10 ^3/uL Lymphocytes # (Auto) 2.2 0.4-5.4 10 ^3/uL Monocytes # (Auto) 0.4 0-1.3 10 ^3/uL Eosinophils # (Auto) 0.1 0-0.8 10 ^3/uL Basophils # (Auto) 0 0-0.2 10 ^3/uL Nucleated Red Blood Cells 0.0 % Sodium Level 142 136-145 mmol/L Potassium Level 3.8 3.5-5.1 mmol/L Chloride Level 108 H 98-107 mmol/L Carbon Dioxide Level 26 20-31 mmol/L Anion Gap 8 5-15 Blood Urea Nitrogen 10 9-23 mg/dL Creatinine 1.03 0.700-1.30 mg/dL Glomerular Filtration Rate Calc 81 >90 mL/min BUN/Creatinine Ratio 9.7 L 10.0-20.0 Serum Glucose 127 H 74-106 mg/dL Hemoglobin A1c 5.0 <5.7 % A1C Calcium Level 9.8 8.7-10.4 mg/dL Carcinoembryonic Antigen 1.30 <=5.0 ng/mL Vitamin B12 Level 463 211-911 pg/mL Vitamin D 25-Hydroxy 60.2 30.0-100 ng/mL Thyroid Stimulating Hormone (TSH) 2.90 0.55-4.78 uIU/mL Urine Color Colorless Yellow Urine Clarity Clear Clear Urine pH 6.0 5.0-9.0 Urine Specific [place] 1.003 1.001-1.035 Urine Protein Negative Negative Urine Ketones Negative Negative Urine Blood Negative Negative /uL Urine Nitrite Negative Negative Urine Bilirubin Negative Negative Urine Urobilinogen Normal Negative mg/dL Urine Leukocyte Esterase Negative Negative /uL Urine RBC <1 0 - 3 /hpf Urine WBC <1 0 - 3 /hpf Urine Squamous Epithelial Cells None seen <5 /hpf Urine Bacteria None seen None Seen /hpf Urine Glucose Normal Normal mg/dL Imaging: CT abdomen pelvis IMPRESSION: 1. Scattered colonic diverticula noted, predominantly in the sigmoid colon. 2. Circumferential soft tissue density wall thickening noted in the sigmoid colon, due to underdistension / infective / inflammatory etiology like sigmoiditis. 3. No perisigmoid mesenteric fat stranding or free fluid or any collection. 4. No abdominal mass or adenopathy. 5. No ascites. 6. No free air. 7. Chronic and / or ancillary findings as described above. Assessment: sigmoiditis, possible early diverticulitis Plan: -discussed with Dr. Rodriguez Continue antibiotic Clear liquid diet advance diet as tolerated Monitor labs Follow-up in GI clinic in 4-6 weeks, for possible plan of elective colonoscopy Thank you for this consult Date of Service: May 31, 2024 Billing Provider: CHRISTOS DODSON Common Visit Codes: CONSULT ONLY Consultation Codes: [id number] CONSULT <45MIN CHRISTOS DODSON May 31, 2024 12:49
[2024-05-31 13:00] VITALS: BP 122/80; PULSE 59; RESP 14; TEMP 97.7; O2SAT 98
[2024-05-31] MEDS: metroNIDAZOLE 500MG/100ML 100 ML IV SCH (14:00)
--- NOTE | 2024-05-31 14:17 | DVHPNRES ---
Progress Note Date Seen: May 31, 2024 Resident Creating Document: NACHO MIRANDA RESIDENT Has the PT tested + for MRSA If YES, has PT been informed?: No Medical Necessity Reason Pt with a Central, PICC or Fol: No Subjective Review of Systems This is a 64-year-old male with past medical history of hypertension, BPH presented to the ED with a chief complaint of left flank pain and chills for 1 day prior to this admission without evidence of fever. The Patient has been experiencing bilateral flank pain since yesterday, but is worse on the left side compared to the right, Thepatient describes the pain as crampy in nature and initially rated as 8/10 with no aggravating factor and relieved after bowel movement associated with chills. He also mentioned that he was having altered bowel habit for last 1 month mostly constipation and he mostly took cranberry juice to relieve the constipation. Family history began for colon cancer and mostly on the maternal side and his last colonoscopy was more than 10 years ago. Patient also mentioned he has elevated PSA level and he did 2 times prostate biopsy which came back normal and he is following with urologist. Initial chest x-ray was performed which was unremarkable. CT scan of the abdomen and pelvis showed colonic diverticula predominantly in the sigmoid colon with circumferential soft tissue wall thickening at the sigmoid colon. The patient was initially started on IV metronidazole and ceftriaxone IV. Patient was admitted for further assessment and management. Patient seen and examined at bedside. Upon my examination, the patient reports mild to moderate left flank pain rated as 5/10 on the pain scale with no specific pattern of radiation. The patient denies fever, chills, diarrhea, constipation at this time. We increase ceftriaxone dose to 2 g IV for sigmoid diverticulitis. We place the patient initially NPO, currently on clear liquid diet. We started the patient on losartan 100 mg q.d. and we will monitor blood pressure closely. Patient had no additional concerns/complaints at this time. ROS Constitutional: Denies weight loss, fever and chills. HEENT: Denies changes in vision and hearing. Respiratory: Denies shortness of breath and cough Cardiovascular: Denies chest discomfort or palpitations GI: Denies abdominal pain, nausea, vomiting and diarrhea. : Reports mild to mod left flank pain. Denies dysuria and urinary frequency. Musculoskeletal: Denies myalgias and joint pain Skin: Denies rash and pruritus. Neurological: Denies dizziness, headache, vision or hearing problems Objective vital signs Vital Sign Date Time Temp Pulse Resp B/P (MAP) Pulse Ox O2 Delivery O2 Flow Rate FiO2 05/31/24 13:00 97.7 59 14 122/80 (94) 98 97.7 05/31/24 09:26 Room Air* 0 21 Total Intake and Output 05/30/24 05/30/24 05/31/24 15:00 23:00 07:00 Intake Total 100 ml Balance 100 ml medications Current Medications Medications Dose Ordered Sig/Abraham Route Start Time Stop Time Status Last Admin Dose Admin Sodium Chloride 10 ml Q8HR IV 05/31/24 06:00 05/31/24 06:00 10 ML Sodium Chloride 1,000 ml @ 75 mls/hr [id number] IV 05/31/24 05:45 05/31/24 06:00 75 MLS/HR Acetaminophen 325 mg Q4HP PRN PO 05/31/24 05:45 Acetaminophen/ Hydrocodone Bitart 1 tab Q4HP PRN PO 05/31/24 05:45 Ondansetron HCl 4 mg Q4HP PRN IV 05/31/24 05:45 Enoxaparin Sodium 40 mg DAILY SC 05/31/24 10:00 05/31/24 12:07 40 MG Morphine Sulfate 2 mg Q4HPRN PRN IV 05/31/24 05:45 Nitroglycerin 0.4 mg Q5MINP PRN SL 05/31/24 05:45 Morphine Sulfate 2 mg Q30M PRN IV 05/31/24 05:45 Metronidazole 100 ml @ 100 mls/hr TID IV 05/31/24 14:00 Pantoprazole Sodium 40 mg DAILY@0600 PO 06/01/24 06:00 Ceftriaxone Sodium/Dextrose 50 ml @ 50 mls/hr DAILY@0900 IV 05/31/24 11:30 05/31/24 12:07 50 MLS/HR Losartan Potassium 100 mg DAILY PO 06/01/24 10:00 Tamsulosin HCl 0.4 mg QPM PO 05/31/24 18:00 Examination Physical Examination General: Patient alert and oriented in person, place and time. Patient following commands. HEENT: Normocephalic, atraumatic, moist mucous membranes Respiratory/pulmonary: Clear lungs bilaterally, no associated crackles or wheezes. Cardiovascular: Normal heart sounds S1 and S2 with no associated murmurs Abdomen: Abdomen nondistended, there mild to mod pain to palpation at the left flank. no palpable masses. Extremities: There is no peripheral edema present at the lower extremities. Peripheral Pulses: 3+ Radial (R). 3+ Radial (L). 3+ Dorsalis pedis (R). 3+ Dorsalis pedis(L) Skin: No rashes or pruritus, there is no sacral edema present at this time. Neurological: Intact cranial nerves with no focal neurologic deficits laboratory and microbiology Laboratory Tests 05/31/24 02:33 Test 05/31/24 02:33 Range/Units Serum Glucose 127 H 74-106 mg/dL Problem List/Assessment/Plan Problem List/Assessment/Plan Assessment/Plan Acute abdominal pain (left flank) likely due to sigmoid diverticulitis Ruled out colonic malignancy -patient initially presented with left flank pain associated with chills but no fever. WBC on normal range -CT scan of the abdomen and pelvis showed colonic diverticula predominantly in the sigmoid colon associated with circumferential soft tissue wall thickening noted in the sigmoid colon consistent with sigmoiditis -continue clear liquid diet -continue IV fluids at 75 cc/hour -continue morphine 2 mg q.4 p.r.n. -Increased ceftriaxone to 2 g daily IV -Continue metronidazole 500mg IV Q8 -FOBT still pending -CEA came back at 1.30, on normal range -GI on board Primary hypertension -Start losartan 100 mg q.d. -monitor blood pressure closely Hx of BPH -Start tamsulosin 0.4mg QPM -Monitor symptoms PUD prophylaxys -Pantoprazole 40mg po QD DVT prophylaxys -Enoxaprin 40mg sc QD Goals of care discussed with the patient at bedside for > 23min, FULL CODE Plan discussed with Dr. Handley Plan discussed with: Patient My Orders My Orders Orders - NACHO MIRANDA Procedure Category Date Status Time Ceftriaxone 2gm/50ml PHA 05/31/24 In Process D5w (Rocephin 2gm/5 11:30 Losartan Tablet PHA 06/01/24 In Process (Cozaar Tablet) 10:00 Tamsulosin PHA 05/31/24 In Process Hydrochloride (Flomax) 18:00 Date of Service: May 31, 2024 Billing Provider: JOAO HANDLEY MD Common Visit Codes: [id number] INP/OBS CARE(HIGH) Secondary Visit Codes: [id number] CARE PLAN 30 MINUTES NACHO MIRANDA May 31, 2024 14:17 JOAO HANDLEY MD May 31, 2024 20:30
[2024-05-31 16:44] VITALS: BP 119/81; PULSE 95; RESP 16; TEMP 98.2; O2SAT 99
[2024-05-31] MEDS: TAMSULOSIN HYDROCHLORIDE 0.4 MG CAP PO SCH (18:00)
[2024-05-31 21:00] VITALS: BP 125/83; PULSE 68; RESP 18; TEMP 98.6; O2SAT 95
[2024-06-01 01:00] VITALS: BP 124/76; PULSE 60; RESP 18; TEMP 98.2; O2SAT 94
[2024-06-01 05:00] VITALS: BP 124/76; PULSE 63; RESP 16; TEMP 97.8; O2SAT 97
[2024-06-01 05:37] LABS: Basophils # (auto) 0 10 ^3/uL (0-0.2); Basophils % (auto) 0.3 % (0.0-2.0); Eosinophils # (auto) 0.1 10 ^3/uL (0-0.8); Hematocrit 35.9 % (41.0-53.0); Hemoglobin 12.1 g/dL (13.5-17.5); Lymphocytes # (auto) 1.4 10 ^3/uL (0.4-5.4); Lymphocytes % (auto) 26.1 % (10.0-50.0); Mean Corpuscular Hemoglobin 31.4 pg (28.0-32.0); Mean Corpuscular Hgb Conc. 33.8 g/dL (32.0-36.0); Mean Corpuscular Volume 92.9 fL (80.0-100.0); Monocytes # (auto) 0.4 10 ^3/uL (0-1.3); Neutrophils # (auto) 3.3 10 ^3/uL (1.6-8.6); Neutrophils % (auto) 63.6 % (37.0-80.0); Platelet Count (auto) 252 10^3/uL (140-450); Red Blood Cells 3.86 10^6/uL (4.5-5.90); White Blood Cell 5.3 10^3/uL (4.4-10.8)
[2024-06-01 05:57] LABS: Alanine Aminotransferase 16 U/L (7-40); Albumin 3.8 g/dL (3.2-4.8); Alkaline Phosphatase 62 U/L (46-116); Anion Gap 6 (5-15); Aspartate Aminotransferase 9 U/L (13-40); BUN/Creatinine Ratio 6.8 (10.0-20.0); Bilirubin, Total 0.8 mg/dL (0.2-1.0); Blood Urea Nitrogen 6 mg/dL (9-23); Calcium 9.2 mg/dL (8.7-10.4); Carbon Dioxide 27 mmol/L (20-31); Chloride 109 mmol/L (98-107); Glucose 101 mg/dL (74-106); Potassium 3.7 mmol/L (3.5-5.1); Sodium 142 mmol/L (136-145)
[2024-06-01 05:58] LABS: Total Protein 6.4 g/dL (5.7-8.2)
[2024-06-01] MEDS: PANTOPRAZOLE 40 MG TAB PO SCH (06:26)
[2024-06-01 09:00] VITALS: BP 123/81; PULSE 58; RESP 17; TEMP 97.6; O2SAT 99
[2024-06-01] MEDS: LOSARTAN POTASSIUM 50 MG TAB PO SCH (09:50)
[2024-06-01] MEDS ORDERED: METR-344 PO (10:48)
[2024-06-01] MEDS ORDERED: CIPR-173 PO (10:48)
--- NOTE | 2024-06-01 10:50 | DVHDS2 ---
Discharge Summary Date of Admission May 31, 2024 at 05:32 Date of Discharge: Jun 01, 2024 Labs/Diagnostic Data: Laboratory Results Test 06/01/24 04:56 05/31/24 12:39 05/31/24 07:11 05/31/24 02:33 White Blood Count 5.3 10^3/uL (4.4-10.8) Red Blood Count 3.86 10^6/uL (4.5-5.90) Hemoglobin 12.1 g/dL (13.5-17.5) Hematocrit 35.9 % (41.0-53.0) Mean Corpuscular Volume 92.9 fL (80.0-100.0) Mean Corpuscular Hemoglobin 31.4 pg (28.0-32.0) Mean Corpuscular Hemoglobin Concent 33.8 g/dL (32.0-36.0) Red Cell Distribution Width 14.0 % (11.8-14.3) Platelet Count 252 10^3/uL (140-450) Mean Platelet Volume 7.2 fL (6.9-10.8) Neutrophils (%) (Auto) 63.6 % (37.0-80.0) Lymphocytes (%) (Auto) 26.1 % (10.0-50.0) Monocytes (%) (Auto) 8.0 % (0.0-12.0) Eosinophils (%) (Auto) 2.0 % (0.0-7.0) Basophils (%) (Auto) 0.3 % (0.0-2.0) Neutrophils # (Auto) 3.3 10 ^3/uL (1.6-8.6) Lymphocytes # (Auto) 1.4 10 ^3/uL (0.4-5.4) Monocytes # (Auto) 0.4 10 ^3/uL (0-1.3) Eosinophils # (Auto) 0.1 10 ^3/uL (0-0.8) Basophils # (Auto) 0 10 ^3/uL (0-0.2) Nucleated Red Blood Cells 0.0 % Sodium Level 142 mmol/L (136-145) Potassium Level 3.7 mmol/L (3.5-5.1) Chloride Level 109 mmol/L (98-107) Carbon Dioxide Level 27 mmol/L (20-31) Anion Gap 6 (5-15) Blood Urea Nitrogen 6 mg/dL (9-23) Creatinine 0.88 mg/dL (0.700-1.30) Glomerular Filtration Rate Calc 95 mL/min (>90) BUN/Creatinine Ratio 6.8 (10.0-20.0) Serum Glucose 101 mg/dL (74-106) Calcium Level 9.2 mg/dL (8.7-10.4) Total Bilirubin 0.8 mg/dL (0.2-1.0) Aspartate Amino Transferase (AST) 9 U/L (13-40) Alanine Aminotransferase (ALT) 16 U/L (7-40) Alkaline Phosphatase 62 U/L (46-116) Total Protein 6.4 g/dL (5.7-8.2) Albumin 3.8 g/dL (3.2-4.8) Stool Occult Blood Negative (Negative) Stool Occult Blood Sample #3 (Negative) Lactic Acid Level 0.7 mmol/L (0.4-2.0) Hemoglobin A1c 5.0 % A1C (<5.7) Carcinoembryonic Antigen 1.30 ng/mL (<=5.0) Vitamin B12 Level 463 pg/mL (211-911) Vitamin D 25-Hydroxy 60.2 ng/mL (30.0-100) Thyroid Stimulating Hormone (TSH) 2.90 uIU/mL (0.55-4.78) Test 05/31/24 02:11 Urine Color Colorless (Yellow) Urine Clarity Clear (Clear) Urine pH 6.0 (5.0-9.0) Urine Specific [place] 1.003 (1.001-1.035) Urine Protein Negative (Negative) Urine Ketones Negative (Negative) Urine Blood Negative /uL (Negative) Urine Nitrite Negative (Negative) Urine Bilirubin Negative (Negative) Urine Urobilinogen Normal mg/dL (Negative) Urine Leukocyte Esterase Negative /uL (Negative) Urine RBC <1 /hpf (0 - 3) Urine WBC <1 /hpf (0 - 3) Urine Squamous Epithelial Cells None seen /hpf (<5) Urine Bacteria None seen /hpf (None Seen) Urine Glucose Normal mg/dL (Normal) Other Laboratory Tests 06/01/24 04:56 Brief Hx & Hospital Course: Final diagnoses: Acute diverticulitis Hypertension BPH 64-year-old male was admitted for left flank pain. He has diverticulitis He was given clear liquid diet and IV fluids and IV antibiotics Overnight he is improved He is asymptomatic now except for some mild pain We will advance his diet for lunch and then he can go home on Cipro and Flagyl for 7 days Follow up with the PCP as soon as possible Advance diet as tolerated Condition at Discharge: Stable Final Diagnosis/Problems List Diverticulitis Discharge Disposition: Home SNF Discharge Will this Physician continue t: No Discharge Instruct/Medications Diet: Cardiac 2g Na,low cholest Activity: No Restrictions, As Tolerated Follow Up/Referral: PCP as soon as possible Medications: Cipro and Flagyl for 7 days Discharge Statement: "Patient was advised to return to the ER or call 911 if any headaches, dizziness, shortness of breath, chest pain, abdominal pain, bleeding, fevers, or worsening of medical condition. Patient was counseled about treatment plan, medications, possible side effects, patientverbalized understanding. All questions were answered to the best of my ability. This discharge took greater then 30 minutes in planning, reviewing documentation, counseling the patient, and discussing with other team members." ASSESSMENT ASSESSMENT Assessment Diverticulitis Date of Service: Jun 01, 2024 Billing Provider: JOAO SALOMON MD Common Visit Codes: 53323-LXB/OBS DISCH DAY >30min JOAO SALOMON MD Jun 01, 2024 10:50
[2024-06-01 13:00] VITALS: BP 122/82; PULSE 79; RESP 17; TEMP 98; O2SAT 95
[2024-06-01 13:40] VITALS: BP 122/82; PULSE 79; RESP 17; TEMP 98; O2SAT 95
== END 2024-06-01 14:00 | disposition home or self-care (01) | DRG 392 ==
LOC: ER 02:00 → OVERFLOW 05:32 → EAST 08:42
PROVIDERS: ADMIT Internal Medicine Geriatric Medicine; ATTEND Internal Medicine Geriatric Medicine
DX: K57.32 Diverticulitis of large intestine without perforation or abscess without bleeding (principal); N40.0 Benign prostatic hyperplasia without lower urinary tract symptoms; E11.9 Type 2 diabetes mellitus without complications; I11.9 Hypertensive heart disease without heart failure; Z80.0 Family history of malignant neoplasm of digestive organs
CPT/HCPCS: 36415; 71045; 74176; 80048; 80053; 81001; 82270; 82306; 82378; 82607; 83036; 83605; 84443; 85025; 99291; G0378; J2405; J3490

== ENCOUNTER 2024-06-01 23:50 | Emergency (ER) | payer OTHER, MEDICAID ==
[~2024-06-01] VITALS: Ht 165.1 cm; Wt 87.6 kg
[~2024-06-01 23:50] MED LIST changes: +METR-344 PO; +TAMS0.4C39 PO
[2024-06-02 00:15] VITALS: BP 130/93; PULSE 88; RESP 17; O2SAT 97
--- NOTE | 2024-06-02 00:19 | ED.PDOC ---
History of Present Illness HPI Comments A 64 year old male presents to the ED with the chief complaint of high blood pressure onset today. Patient states he was was discharged from this ED today around 1400 with the diagnosis of Diverticulitis, was prescribed antibiotics, tried to grain picker his prescription but was not able to. Patient got home and noticed he was shaking and believes his blood pressure was high. Upon ED arrival, patient states his symptoms have resolved and has no current complaints. No other symptoms or modifying factors present at this time. Time Seen by MD: 00:11 Reviewed Notes: Medications, Allergies Allergies: Coded Allergies: NO KNOWN ALLERGIES (Unverified , 02/10/24) Home Meds Active Scripts Metronidazole (Flagyl) 500 Mg Tab, 500 MG PO TID for 7 Days, #21 TAB Prov:JOAO SALOMON MD 06/01/24 Ciprofloxacin Hcl (Cipro) 500 Mg Tab, 1 TAB PO BID, #14 TAB Prov:JOAO SALOMON MD 06/01/24 Clonidine Hydrochloride (Clonidine Hcl) 0.2 Mg Tab, 1 TAB PO BIDP PRN, #10 TAB 0 Refills To be used if systolic pressures above 160 or diastolic pressures above 90. Prov:OMAR DURANT PAC 03/10/24 Reported Medications Tamsulosin Hcl (Tamsulosin Hcl) 0.4 Mg Cap, 1 CAP PO DAILY 05/31/24 Losartan Potassium (Losartan Potassium) 50 Mg Tab, 50 MG PO BID, TAB 02/11/24 Amlodipine Besylate (Amlodipine Besylate) 10 Mg Tab, 1 TAB PO DAILY, #30 TAB 5 Refills 02/11/24 Information Source: Patient Mode of Arrival: Ambulatory Severity: Moderate Timing: Hours Duration: Since onset Prehospital treatment: None Past Medical History PAST MEDICAL HISTORY: DM, HTN, UTI'S Surgical History: Hernia Repair Family History Family History: Reviewed,noncontributory to illness Social History Smoker: Non-Smoker Alcohol: Denies ETOH Use Drugs: Denies Drug Use Lives In: Home Constitutional: denies: chills, diaphoresis, fatigue, fever, malaise, sweats, weakness, others EENTM: denies: blurred vision, double vision, ear bleeding, ear discharge, ear drainage, ear pain, ear ringing, eye pain, eye redness, hearing loss, mouth pain, mouth swelling, nasal discharge, nose bleeding, nose congestion, nose pain, photophobia, tearing, throat pain, throat swelling, voice changes, others Respiratory: denies: cough, hemoptysis, orthopnea, SOB at rest, shortness of breath, SOB with excertion, stridor, wheezing, others Cardiovascular: denies: chest pain, dizzy spells, diaphoresis, Dyspnea on exertion, edema, irregular heart beat, left arm pain, lightheadedness, palpitations, PND, syncope, others Gastrointestinal: denies: abdomen distended, abdominal pain, blood streaked bowels, constipated, diarrhea, dysphagia, difficulty swallowing, hematemesis, melena, nausea, poor appetite, poor fluid intake, rectal bleeding, rectal pain, vomiting, others Genitourinary: denies: burning, dysuria, flank pain, frequency, hematuria, incontinence, penile discharge, penile sore, pain, testicle pain, testicle swelling, urgency, others Neurological: reports: tremors; denies: dizziness, fainting, headache, left sided numbness, left sided weakness, numbness, paresthesia, pre-existing deficit, right sided numbness, right sided weakness, seizure, speech problems, tingling, weakness, others Musculoskeletal: denies: back pain, gout, joint pain, joint swelling, muscle pain, muscle stiffness, neck pain, others Integumetry: denies: bruises, change in color, change in hair/nails, dryness, laceration, lesions, lumps, rash, wounds, others Allergic/Immunocompromised: denies: Difficulty Healing, Frequent Infections, Hives, Itching, others Hematologic/Lymphatic: denies: anemia, blood clots, easy bleeding, easy bruising, swollen glands, others Endocrine: denies: excessive hunger, excessive sweating, excessive thirst, excessive urination, flushing, intolerance to cold, intolerance to heat, unexplained weight gain, unexplained weight loss, others Psychiatric: denies: anxiety, bipolar disorder, depression, hopeless, panic disorder, schizophrenia, sleepless, suicidal, others All Other Systems: Reviewed and Negative Physical Exam General Appearance: No Apparent Distress, Normal HEENT: Normal ENT Inspection, Pharynx Normal, TMs Normal Neck: Full Range of Motion, Non-Tender, Normal, Normal Inspection Respiratory: Chest Non-Tender, Lungs Clear, No Accessory Muscle Use, No Respiratory Distress, Normal Breath Sounds Cardiovascular: No Edema, No JVD, No Murmur, No Gallop, Normal Peripheral Pulses, Regular Rate/Rhythm Breast Exam: Deferred Gastrointestinal: No Organomegaly, Non Tender, No Pulsatile Mass, Normal Bowel Sounds, Soft Genitalia: Deferred Pelvic: Deferred Rectal: Deferred Extremities: No calf tenderness, Normal capillary refill, Normal inspection, Normal range of motion, Non-tender, No pedal edema Musculoskeletal : Apperance: Normal Neurologic: Alert, silk finisher II-XII nml as Tested, No Motor Deficits, Normal Affect, Normal Mood, No Sensory Deficits Cerebellar Function: Normal Reflexes: Normal Skin: Dry, Normal Color, Warm Lymphatic: No Adenopathy Was a procedure done? Was a procedure done?: No Differential Dx Considerations may include: hypertension X-Ray, Labs, Meds, VS Vital Signs Date Time Temp Pulse Resp B/P (MAP) Pulse Ox O2 Delivery O2 Flow Rate FiO2 06/02/24 00:15 98.2 88 17 130/93 (105) 97 Time of 1ST Reevaluation: 00:41 Reevaluation 1ST: Unchanged Patient Education/Counseling: Diagnosis, Treatment, Prognosis Family Education/Counseling: No Family Present Departure 1 Departure Time of Disposition: 05:44 (Patient presented with hypertension and then eloped from the emergency department) Impression: Primary Impression: Hypertension Qualified Codes: I10 - Essential (primary) hypertension Disposition: 07 LEFT AWOL/ELOPED Condition: Fair Critical Care Note Critical Care Time?: No Stability Stability form required: No I personally scribed for OMAR DURANT PAC ([email or web address]) on 06/02/24 at 00:19. Electronically submitted by Karen Glynn ([email or web address]). OMAR DURANT PAC Jun 02, 2024 00:19 AIMEE LEONE MD Jun 14, 2024 05:45
== END 2024-06-02 00:23 | disposition home or self-care (01) ==
LOC: ER 23:50
DX: I10 Essential (primary) hypertension (principal); E11.9 Type 2 diabetes mellitus without complications; Z79.899 Other long term (current) drug therapy; Z98.890 Other specified postprocedural states

== ENCOUNTER 2024-08-16 12:50 | Emergency (ER) | payer OTHER, MEDICAID ==
[~2024-08-16] VITALS: Ht 162.6 cm; Wt 85.1 kg
[~2024-08-16 12:50] MED LIST changes: -NAP500T GT
[2024-08-16 14:03] VITALS: BP 118/82; TEMP 98.8
[2024-08-16 14:12] VITALS: PULSE 84; RESP 17; O2SAT 96
--- NOTE | 2024-08-16 14:42 | DVH ---
CT ABDOMEN AND PELVIS WITHOUT CONTRAST CLINICAL HISTORY: RIGHT FLANK PAIN TECHNIQUE: Multiple contiguous axial images of the abdomen and pelvis without intravenous contrast. The images were reformatted degenerate coronal and sagittal reconstructions. All CT scans at this medical facility are performed using dose modulation techniques as appropriate t o a performed exam including the following:Automated exposure control was utilized; adjustment of the MA and/or KV according to patient size; and use of iterative reconstruction technique. Radiation Dose Information: CT Dose: CTDI volume is 20 mGy. Dose-length product is 963 mGy*cm Comparison: CT CT AB PEL WO CON-NO ORAL OR IV on DOS: 05/31/24, CT CT AB PEL WO CON-NO ORAL OR IV on D OS: 03/04/24 FINDINGS: Evaluation of the abdomen and pelvis is limited without intravenous contrast. The liver, gallbladder, pancreas, kidneys, adrenal glands, and spleen appear within normal limits. There is no gross evidence of abdominal lymphadenopathy. There is no free fluid or free air. The stomach grossly appears unremarkable. The small and large bowel loops demonstrate normal caliber . There are multiple diverticula in the sigmoid colon without evidence of acute diverticulitis. A no rmal-appearing appendix is seen in the right lower quadrant abdomen. The abdominal aorta and IVC appear within normal limits. There is prostatomegaly. The bladder demonstrates circumferential wall thickening likely related to chronic outlet obstruction. . There is no gross evidence of a pelvic mass. There is no free fluid co llection. Lung bases are clear. There is no acute osseous abnormality. IMPRESSION: 1. There is no acute process in the abdomen and pelvis. 2. Sigmoid diverticulosis without evidence of acute diverticulitis. 3. Prostatomegaly with likely chronic bladder outlet obstruction. HS:Y
--- NOTE | 2024-08-16 15:05 | ED.PDOC ---
General HPI Comments A 64 YEAR OLD MALE PRESENTS TO THE ED WITH COMPLAINT OF RIGHT FLANK PAIN. PATIENT STATES HE HAS BEEN EXPERIENCING RIGHT FLANK PAIN FOR THE PAST 3 DAYS. PATIENT NOTES HE HAS A HISTORY OF BPH AND UTIS IN THE PAST. PATIENT REPORTS HIS BLOOD PRESSURE HAS ALSO BEEN FLUCTUATING UP AND DOWN FOR THE PAST 3 DAYS. THE PATIENT IS OFTEN REQUESTING A MEDICATION REFILL FOR HIS CLONIDINE. PATIENT DENIES DYSURIA, HEMATURIA, FEVER, CHILLS, SHORTNESS OF BREATH, CHEST PAIN, ABDOMINAL PAIN, NAUSEA, VOMITING, HEADACHE, OR OTHER COMPLAINTS. NO OTHER SYMPTOMS OR MODIFYING FACTORS AT THIS TIME. PATIENT IS ALERT, ORIENTED X 4, AND HAS STEADY GAIT. Chief Complaint: Flank Pain Time Seen by MD: 14:18 Reviewed notes: Nurses Notes, Medications, Allergies Allergies: Coded Allergies: NO KNOWN ALLERGIES (Unverified , 02/10/24) Home Meds Active Scripts Clonidine Hydrochloride (Clonidine Hcl) 0.2 Mg Tab, 1 TAB PO DAILY PRN, #20 TAB Prov:RIKKI CROW 08/16/24 Ibuprofen (Ibuprofen) 800 Mg Tab, 1 TAB PO TID, #30 TAB Prov:RIKKI CROW 08/16/24 Metronidazole (Flagyl) 500 Mg Tab, 500 MG PO TID for 7 Days, #21 TAB Prov:JOAO SALOMON MD 06/01/24 Ciprofloxacin Hcl (Cipro) 500 Mg Tab, 1 TAB PO BID, #14 TAB Prov:JOAO SALOMON MD 06/01/24 Clonidine Hydrochloride (Clonidine Hcl) 0.2 Mg Tab, 1 TAB PO BIDP PRN, #10 TAB 0 Refills To be used if systolic pressures above 160 or diastolic pressures above 90. Prov:OMAR DURANT PAC 03/10/24 Reported Medications Tamsulosin Hcl (Tamsulosin Hcl) 0.4 Mg Cap, 1 CAP PO DAILY 05/31/24 Losartan Potassium (Losartan Potassium) 50 Mg Tab, 50 MG PO BID, TAB 02/11/24 Amlodipine Besylate (Amlodipine Besylate) 10 Mg Tab, 1 TAB PO DAILY, #30 TAB 5 Refills 02/11/24 Information Source: Patient Mode of Arrival: Ambulatory Severity: Moderate Inability to void: None Timing: Days Duration: Since onset, Days Prehospital treatment: None Onset: Spontaneous Symptoms: Other (RIGHT FLANK PAIN) History of: UTI, BPH Location: (R) Flank Penile discharge: None Modifying factors: None associated signs and symptoms: None Past Medical History PAST MEDICAL HISTORY: DM, HTN, UTI'S Past Medical History (Other): BPH Surgical History: Hernia Repair Family History Family History: Reviewed,noncontributory to illness Social History Smoker: Non-Smoker Alcohol: Denies ETOH Use Drugs: Denies Drug Use Lives In: Home Constitutional: denies: chills, diaphoresis, fatigue, fever, malaise, sweats, weakness, others EENTM: denies: blurred vision, double vision, ear bleeding, ear discharge, ear drainage, ear pain, ear ringing, eye pain, eye redness, hearing loss, mouth pain, mouth swelling, nasal discharge, nose bleeding, nose congestion, nose pain, photophobia, tearing, throat pain, throat swelling, voice changes, others Respiratory: denies: cough, hemoptysis, orthopnea, SOB at rest, shortness of breath, SOB with excertion, stridor, wheezing, others Cardiovascular: denies: chest pain, dizzy spells, diaphoresis, Dyspnea on e xertion, edema, irregular heart beat, left arm pain, lightheadedness, palpitations, PND, syncope, others Gastrointestinal: denies: abdomen distended, abdominal pain, blood streaked bowels, constipated, diarrhea, dysphagia, difficulty swallowing, hematemesis, melena, nausea, poor appetite, poor fluid intake, rectal bleeding, rectal pain, vomiting, others Genitourinary: reports: flank pain (RIGHT FLANK PAIN); denies: burning, dysuria, frequency, hematuria, incontinence, penile discharge, penile sore, pain, testicle pain, testicle swelling, urgency, others Neurological: denies: dizziness, fainting, headache, left sided numbness, left sided weakness, numbness, paresthesia, pre-existing deficit, right sided numbness, right sided weakness, seizure, speech problems, tingling, tremors, weakness, others Musculoskeletal: reports: back pain, muscle pain; denies: gout, joint pain, joint swelling, muscle stiffness, neck pain, others Integumetry: denies: bruises, change in color, change in hair/nails, dryness, laceration, lesions, lumps, rash, wounds, others Allergic/Immunocompromised: denies: Difficulty Healing, Frequent Infections, Hives, Itching, others Hematologic/Lymphatic: denies: anemia, blood clots, easy bleeding, easy bruising, swollen glands, others Endocrine: denies: excessive hunger, excessive sweating, excessive thirst, excessive urination, flushing, intolerance to cold, intolerance to heat, unexplained weight gain, unexplained weight loss, others Psychiatric: denies: anxiety, bipolar disorder, depression, hopeless, panic disorder, schizophrenia, sleepless, suicidal, others All Other Systems: Reviewed and Negative Physical Exam General Appearance: No Apparent Distress, Normal HEENT: Normal ENT Inspection, PERRL/EOMI, Pharynx Normal, TMs Normal Neck: Full Range of Motion, Non-Tender, Normal, Normal Inspection Respiratory: Chest Non-Tender, Lungs Clear, No Accessory Muscle Use, No Respiratory Distress, Normal Breath Sounds Cardiovascular: No Edema, No JVD, No Murmur, No Gallop, Normal Peripheral Pulses, Regular Rate/Rhythm Breast Exam: Deferred Gastrointestinal: No Organomegaly, No Pulsatile Mass, Normal Bowel Sounds, Soft, Tenderness (RIGHT FLANK, NO CVA TENDERNESS. ) Genitalia: Deferred Pelvic: Deferred Rectal: Deferred Extremities: No calf tenderness, Normal capillary refill, Normal inspection, Normal range of motion, Non-tender, No pedal edema Musculoskeletal : Location: Right Extremity Location: Back Apperance: Tenderness (RIGHT LOW BACK WITH MUSCLE SPASM, NO BONY TENDERNESS AND SWELLING, NO CVA TENDERNESS. ) Neurologic: Alert, sustainability consultant II-XII nml as Tested, No Motor Deficits, Normal Affect, Normal Mood, No Sensory Deficits Cerebellar Function: Normal Reflexes: Normal Skin: Dry, Normal Color, Warm Peripheral Pulses: 2+ carotid (R), 2+ carotid (L) Lymphatic: No Adenopathy Was a procedure done? Was a procedure done?: No Differential Diagnosis Kidney stone (Female): N/A Kidney stone (Male): Pyelonephritis, Renal failure, Strain, Urinary obstruction, Urolithiasis, Urinary tract infection Penile/Scrotal: N/A Urinary Problem (Male): Prostatitis, Renal Failure, Urethritis, Urinary Retention, Urolithiasis, UTI Urinary Problem (Female): N/A X-Ray, Labs, Meds, VS Vital Signs Date Time Temp Pulse Resp B/P (MAP) Pulse Ox O2 Delivery O2 Flow Rate FiO2 08/16/24 14:12 84 17 96 Room Air* 0 21 08/16/24 14:03 84 17 96 Room Air 08/16/24 14:03 98.8 84 17 118/82 (94) 96 98.8 08/16/24 13:48 99.3 89 20 141/96 (111) 96 Lab Test 08/16/24 14:18 08/16/24 13:40 Range/Units White Blood Count 5.8 4.4-10.8 10^3/uL Red Blood Count 4.50 4.5-5.90 10^6/uL Hemoglobin 14.4 13.5-17.5 g/dL Hematocrit 41.3 41.0-53.0 % Mean Corpuscular Volume 91.9 80.0-100.0 fL Mean Corpuscular Hemoglobin 32.0 28.0-32.0 pg Mean Corpuscular Hemoglobin Concent 34.8 32.0-36.0 g/dL Red Cell Distribution Width 14.4 H 11.8-14.3 % Platelet Count 293 140-450 10^3/uL Mean Platelet Volume 7.6 6.9-10.8 fL Neutrophils (%) (Auto) 61.0 37.0-80.0 % Lymphocytes (%) (Auto) 31.1 10.0-50.0 % Monocytes (%) (Auto) 6.9 0.0-12.0 % Eosinophils (%) (Auto) 0.7 0.0-7.0 % Basophils (%) (Auto) 0.3 0.0-2.0 % Neutrophils # (Auto) 3.5 1.6-8.6 10 ^3/uL Lymphocytes # (Auto) 1.8 0.4-5.4 10 ^3/uL Monocytes # (Auto) 0.4 0-1.3 10 ^3/uL Eosinophils # (Auto) 0 0-0.8 10 ^3/uL Basophils # (Auto) 0 0-0.2 10 ^3/uL Nucleated Red Blood Cells 0.1 % Sodium Level 140 136-145 mmol/L Potassium Level 4.0 3.5-5.1 mmol/L Chloride Level 104 98-107 mmol/L Carbon Dioxide Level 27 20-31 mmol/L Anion Gap 9 5-15 Blood Urea Nitrogen 8 L 9-23 mg/dL Creatinine 1.02 0.700-1.30 mg/dL Glomerular Filtration Rate Calc 82 >90 mL/min BUN/Creatinine Ratio 7.8 L 10.0-20.0 Serum Glucose 99 74-106 mg/dL Calcium Level 10.8 H 8.7-10.4 mg/dL Total Bilirubin 1.0 0.2-1.0 mg/dL Aspartate Amino Transferase (AST) 18 13-40 U/L Alanine Aminotransferase (ALT) 19 7-40 U/L Alkaline Phosphatase 83 46-116 U/L Total Protein 8.1 5.7-8.2 g/dL Albumin 5.3 H 3.2-4.8 g/dL Urine Color Light-yellow Yellow Urine Clarity Clear Clear Urine pH 6.5 5.0-9.0 Urine Specific Carrie[place] 1.002 1.001-1.035 Urine Protein Negative Negative Urine Ketones Negative Negative Urine Blood Negative Negative /uL Urine Nitrite Negative Negative Urine Bilirubin Negative Negative Urine Urobilinogen Normal Negative mg/dL Urine Leukocyte Esterase Negative Negative /uL Urine RBC None seen 0 - 3 /hpf Urine WBC None seen 0 - 3 /hpf Urine Squamous Epithelial Cells None seen <5 /hpf Urine Bacteria None seen None Seen /hpf Urine Glucose Normal Normal mg/dL CT ABDOMEN AND PELVIS WITHOUT CONTRAST CLINICAL HISTORY: RIGHT FLANK PAIN TECHNIQUE: Multiple contiguous axial images of the abdomen and pelvis without intravenous contrast. The images were reformatted degenerate coronal and sagittal reconstructions. All CT scans at this medical facility are performed using dose modulation techniques as appropriate to a performed exam including the following:Automated exposure control was utilized; adjustment of the MA and/or KV according to patient size; and use of iterative reconstruction technique. Radiation Dose Information: CT Dose: CTDI volume is 20 mGy. Dose-length product is 963 mGy*cm Comparison: CT CT AB PEL WO CON-NO ORAL OR IV on DOS: 05/31/24, CT CT AB PEL WO CON-NO ORAL OR IV on DOS: 03/04/24 FINDINGS: Evaluation of the abdomen and pelvis is limited without intravenous contrast. The liver, gallbladder, pancreas, kidneys, adrenal glands, and spleen appear within normal limits. There is no gross evidence of abdominal lymphadenopathy. There is no free fluid or free air. The stomach grossly appears unremarkable. The small and large bowel loops demonstrate normal caliber. There are multiple diverticula in the sigmoid colon without evidence of acute diverticulitis. A normal-appearing appendix is seen in the right lower quadrant abdomen. The abdominal aorta and IVC appear within normal limits. There is prostatomegaly. The bladder demonstrates circumferential wall thickening likely related to chronic outlet obstruction. . There is no gross evidence of a pelvic mass. There is no free fluid collection. Lung bases are clear. There is no acute osseous abnormality. IMPRESSION: 1. There is no acute process in the abdomen and pelvis. 2. Sigmoid diverticulosis without evidence of acute diverticulitis. 3. Prostatomegaly with likely chronic bladder outlet obstruction. HS:Y ATED BY: ESTUARDO VILLATORO MD DICTATED DATE/TIME: 08/16/241438 SIGNED BY: ESTUARDO VILLATORO MD SIGNED DATE/TIME: 08/16/241438 CC: X-Ray, Labs, Meds, VS Comment EXTERNAL MEDICAL RECORDS REVIEWED: [NONE] INDEPENDENT HISTORIANS: [NONE] SOCIAL DETERMINANTS OF HEALTH: [NONE] LABS ORDERED: CBC, BMP, UA REVIEWED AND INTERPRETED RESULTS: NORMAL IMAGING ORDERED: CT ABD/PEL TREATMENTS ORDERED: NORMAL PROCEDURES PERFORMED: NONE CRITICAL CARE TIME: NONE I HAVE DISCUSSED THE PATIENT WITH THE ATTENDING PHYSICIAN DR. OBREGON AND HE AGREES WITH THE PATIENT'S PLAN OF CARE AND DISPOSITION. BASED ON HISTORY OF PRESENT ILLNESS, AND PHYSICAL EXAM, PATIENT WILL BE DISCHARGED HOME. SHARED DECISION MAKING: PATIENT INSTRUCTED TO FOLLOW UP WITH PRIMARY CARE PROVIDER IN 1-2 DAYS FOR RE-EVALUATION OF SYMPTOMS. PATIENT VERBALIZES UNDERSTANDING TO RETURN TO ED FOR NEW OR WORSENING SYMPTOMS OR IF FOLLOW UP WITH PCP CANNOT BE OBTAINED. PATIENT FEELS COMFORTABLE GOING HOME AT THIS TIME. ALL QUESTIONS ADDRESSED AT TIME OF DISCHARGE. Images Reviewed?: Images reviewed and evaluated by me Time of 1ST Reevaluation: 16:15 Reevaluation 1ST: Improved Patient Education/Counseling: Diagnosis, Treatment, Need For Follow Up Family Education/Counseling: Diagnosis, Treatment, Need For Follow Up Medical Screening: No EMC Exist At This Time Departure 1 Departure Time of Disposition: 16:15 Impression: Primary Impression: Right flank pain Additional Impressions: Low back strain Qualified Codes: S39.012A - Strain of muscle, fascia and tendon of lower back, initial encounter Encounter for medication refill Disposition: HOME / SELF CARE / HOMELESS Condition: Stable Additional Instructions: FOLLOW-UP WITH PCP IN 1 TO 2 DAYS. TAKE MEDICATIONS PRESCRIBED. RETURN TO ED FOR ANY NEW OR WORSENING SYMPTOMS. e-Prescriptions Clonidine Hydrochloride (Clonidine Hcl) 0.2 Mg Tab 1 TAB PO DAILY PRN, #20 TAB Prov: RIKKI CROW 08/16/24 Ibuprofen (Ibuprofen) 800 Mg Tab 1 TAB PO TID, #30 TAB Prov: RIKKI CROW 08/16/24 Discharged With: Self Critical Care Note Critical Care Time?: No Stability Stability form required: No I personally scribed for RIKKI CROW ([email or web address]) on 08/16/24 at 15:05. Electronically submitted by Oscar Osei ([employer]). I personally scribed for RIKKI CROW ([email or web address]) on 08/16/24 at 16:03. Electronically submitted by Oscar Osei ([employer]). I personally scribed for RIKKI CROW ([email or web address]) on 08/16/24 at 16:08. Electronically submitted by Oscar Osei ([employer]). RIKKI CROW Aug 16, 2024 15:05
[2024-08-16 15:11] LABS: Alanine Aminotransferase 19 U/L (7-40); Alkaline Phosphatase 83 U/L (46-116); Anion Gap 9 (5-15); Aspartate Aminotransferase 18 U/L (13-40); BUN/Creatinine Ratio 7.8 (10.0-20.0); Carbon Dioxide 27 mmol/L (20-31); Chloride 104 mmol/L (98-107); Glucose 99 mg/dL (74-106); Sodium 140 mmol/L (136-145)
[2024-08-16 15:12] LABS: Total Protein 8.1 g/dL (5.7-8.2)
[2024-08-16 15:16] LABS: Basophils # (auto) 0 10 ^3/uL (0-0.2); Basophils % (auto) 0.3 % (0.0-2.0); Eosinophils # (auto) 0 10 ^3/uL (0-0.8); Eosinophils % (auto) 0.7 % (0.0-7.0); Hematocrit 41.3 % (41.0-53.0); Hemoglobin 14.4 g/dL (13.5-17.5); Lymphocytes # (auto) 1.8 10 ^3/uL (0.4-5.4); Lymphocytes % (auto) 31.1 % (10.0-50.0); Mean Corpuscular Hgb Conc. 34.8 g/dL (32.0-36.0); Mean Corpuscular Volume 91.9 fL (80.0-100.0); Monocytes # (auto) 0.4 10 ^3/uL (0-1.3); Monocytes % (auto) 6.9 % (0.0-12.0); Neutrophils # (auto) 3.5 10 ^3/uL (1.6-8.6); Nucleated Red Blood Cells % 0.1 %; Platelet Count (auto) 293 10^3/uL (140-450); Red Cell Distribution Width 14.4 % (11.8-14.3); White Blood Cell 5.8 10^3/uL (4.4-10.8)
[2024-08-16 15:24] LABS: Albumin 5.3 g/dL (3.2-4.8); Blood Urea Nitrogen 8 mg/dL (9-23); Calcium 10.8 mg/dL (8.7-10.4)
[2024-08-16 15:39] LABS: Urine Bacteria None Seen /hpf (None Seen); Urine WBC None Seen /hpf (0 - 3)
[2024-08-16 15:52] LABS: Urine Blood Negative /uL (Negative); Urine Clarity Clear (Clear); Urine Color Light-Yellow (Yellow); Urine Protein, UAD Negative (Negative); Urine Specific Gravity 1.002 (1.001-1.035); Urine Squamous Epithelial Cell None Seen /hpf (<5); Urine Urobilinogen Normal (Negative); Urine pH 6.5 (5.0-9.0)
[2024-08-16] MEDS ORDERED: IBUP-1456 PO (16:13)
[2024-08-16] MEDS ORDERED: CLON0.2T PO (16:13)
== END 2024-08-16 16:17 | disposition home or self-care (01) ==
LOC: ER 12:50
DX: S39.012A Strain of muscle, fascia and tendon of lower back, initial encounter (principal); R10.9 Unspecified abdominal pain; I10 Essential (primary) hypertension; E11.9 Type 2 diabetes mellitus without complications; Z79.899 Other long term (current) drug therapy; Z87.440 Personal history of urinary (tract) infections; Z98.890 Other specified postprocedural states; Z76.0 Encounter for issue of repeat prescription; X58.XXXA Exposure to other specified factors, initial encounter; Y93.89 Activity, other specified; Y92.89 Other specified places as the place of occurrence of the external cause; Y99.8 Other external cause status
CPT/HCPCS: 36415; 74176; 80053; 81001; 85025

== ENCOUNTER 2025-03-06 10:26 | Emergency (ER) | payer OTHER, MEDICAID ==
[~2025-03-06] VITALS: Ht 165.1 cm; Wt 83.6 kg
[~2025-03-06 10:26] MED LIST changes: +IBUP-1456 PO
--- NOTE | 2025-03-06 11:09 | DVH ---
XY CHEST PORTABLE, HISTORY: high bp COMPARISON: XY CHEST PORTABLE on DOS: 05/31/24, XY CHEST PORTABLE on DOS: 02/10/24 XY CHEST PORTABLE on DOS: 05/31/24, XY CHEST PORTABLE on DOS: 02/10/24 TECHNICAL DATA: 1 view of the chest was obtained. FINDINGS: Lines and tubes: None Cardiomediastinal silhouette: normal Pulmonary vasculature: normal Lung expansion: normal Lung airspace: normal Lung interstitium: normal Pleura: normal Pneumothorax: no Bones: Unremarkable Other: no IMPRESSION: No acute intrathoracic abnormality.
[2025-03-06 11:35] LABS: Hematocrit 40.2 % (41.0-53.0); Hemoglobin 13.9 g/dL (13.5-17.5); Mean Corpuscular Hemoglobin 31.4 pg (28.0-32.0); Mean Corpuscular Volume 90.9 fL (80.0-100.0); Nucleated Red Blood Cells % 0.1 %
[2025-03-06 11:43] LABS: Chloride 104 mmol/L (98-107); Potassium 3.8 mmol/L (3.5-5.1); Sodium 138 mmol/L (136-145)
[2025-03-06 11:44] LABS: Calcium 9.3 mg/dL (8.7-10.4)
--- NOTE | 2025-03-06 11:45 | ED.PDOC ---
HPI Comments 65y M who presents to the ED for chief complaint of elevated blood pressure. Pt states he woke up today and states his blood pressure was high. Pt states he has history of hypertension and states his blood pressure was 127/93, so he took his clonidine at approx 0600 this AM. Pt states he also took his losartan and Norvasc at approx 0800 this AM. Pt states he decided to come to the ED for further evaluation. Pt in the ED, has noted BP of 127/93. Pt in the ED, stats he is having occipital headache and states also gets intermittent episodes of associated shortness of breath. Pt also mentions concern that he may have some kind of infection, stating he felt shaky yesterday, thought he had a fever, but did not when he checked his temperature, but still wants to be further evaluated. Pt otherwise has been to [facility] multiple times in the past for similar complaints. Pt otherwise denies any chest pain, dizziness, fever, cough, chills, n/v/d, dysuria, sick contacts or associated symptoms. Pt otherwise denies any other symptoms at this time. Chief Complaint: High Blood Pressure Time Seen by MD: 11:20 Reviewed Notes: Medications, Allergies Allergies: Coded Allergies: NO KNOWN ALLERGIES (Unverified , 02/10/24) Home Meds Active Scripts Clonidine Hydrochloride (Clonidine Hcl) 0.2 Mg Tab, 1 TAB PO DAILY PRN, #20 TAB Prov:RIKKI CROW 08/16/24 Ibuprofen (Ibuprofen) 800 Mg Tab, 1 TAB PO TID, #30 TAB Prov:RIKKI CROW 08/16/24 Metronidazole (Flagyl) 500 Mg Tab, 500 MG PO TID for 7 Days, #21 TAB Prov:JOAO SALOMON MD 06/01/24 Ciprofloxacin Hcl (Cipro) 500 Mg Tab, 1 TAB PO BID, #14 TAB Prov:JOAO SALOMON MD 06/01/24 Clonidine Hydrochloride (Clonidine Hcl) 0.2 Mg Tab, 1 TAB PO BIDP PRN, #10 TAB 0 Refills To be used if systolic pressures above 160 or diastolic pressures above 90. Prov:OMAR DURANT 03/10/24 Reported Medications Tamsulosin Hcl (Tamsulosin Hcl) 0.4 Mg Cap, 1 CAP PO DAILY 05/31/24 Losartan Potassium (Losartan Potassium) 50 Mg Tab, 50 MG PO BID, TAB 02/11/24 Amlodipine Besylate (Amlodipine Besylate) 10 Mg Tab, 1 TAB PO DAILY, #30 TAB 5 Refills 02/11/24 Information Source: Patient Mode of Arrival: Ambulatory Brought in by: self Past Medical History PAST MEDICAL HISTORY: DM, HTN, UTI'S Past Medical History (Other): BPH Surgical History: Hernia Repair Family History Family History: Reviewed,noncontributory to illness Social History Smoker: Non-Smoker Alcohol: Denies ETOH Use Drugs: Denies Drug Use Lives In: Home Constitutional: denies: chills, diaphoresis, fatigue, fever, malaise, sweats, weakness, others EENTM: denies: blurred vision, double vision, ear bleeding, ear discharge, ear drainage, ear pain, ear ringing, eye pain, eye redness, hearing loss, mouth pain, mouth swelling, nasal discharge, nose bleeding, nose congestion, nose pain, photophobia, tearing, throat pain, throat swelling, voice changes, others Respiratory: reports: shortness of breath; denies: cough, hemoptysis, orthopnea, SOB at rest, SOB with excertion, stridor, wheezing, others Cardiovascular: denies: chest pain, dizzy spells, diaphoresis, Dyspnea on exertion, edema, irregular heart beat, left arm pain, lightheadedness, palpitations, PND, syncope, others Gastrointestinal: denies: abdomen distended, abdominal pain, blood streaked bowels, constipated, diarrhea, dysphagia, difficulty swallowing, hematemesis, melena, nausea, poor appetite, poor fluid intake, rectal bleeding, rectal pain, vomiting, others Genitourinary: denies: burning, dysuria, flank pain, frequency, hematuria, incontinence, penile discharge, penile sore, pain, testicle pain, testicle swelling, urgency, others Neurological: reports: headache; denies: dizziness, fainting, left sided n umbness, left sided weakness, numbness, paresthesia, pre-existing deficit, right sided numbness, right sided weakness, seizure, speech problems, tingling, tremors, weakness, others Musculoskeletal: denies: back pain, gout, joint pain, joint swelling, muscle pain, muscle stiffness, neck pain, others Integumetry: denies: bruises, change in color, change in hair/nails, dryness, laceration, lesions, lumps, rash, wounds, others Allergic/Immunocompromised: denies: Difficulty Healing, Frequent Infections, Hives, Itching, others Hematologic/Lymphatic: denies: anemia, blood clots, easy bleeding, easy bruising, swollen glands, others Endocrine: denies: excessive hunger, excessive sweating, excessive thirst, excessive urination, flushing, intolerance to cold, intolerance to heat, unexpl ained weight gain, unexplained weight loss, others Psychiatric: denies: anxiety, bipolar disorder, depression, hopeless, panic disorder, schizophrenia, sleepless, suicidal, others All Other Systems: Reviewed and Negative Physical Exam General Appearance: No Apparent Distress HEENT: Other (Pupils and face symmetric. Moist mucous membranes.) Neck: Full Range of Motion, Normal Inspection Respiratory: Lungs Clear, No Accessory Muscle Use, No Respiratory Distress, Normal Breath Sounds Cardiovascular: No Edema, No JVD, Regular Rate/Rhythm Breast Exam: Deferred Gastrointestinal: Non Tender, Soft Genitalia: Deferred Pelvic: Deferred Rectal: Deferred Extremities: Normal inspection, Normal range of motion, Non-tender, No pedal edema Neurologic: Alert (Oriented x4), Normal Affect, Normal Mood, Other (Ambulatory) Cerebellar Function: NOT DONE Reflexes: NOT DONE Skin: Dry, Normal Color, Warm Lymphatic: NOT DONE EKG EKG : Comments Sinus rhythm, rate 71, normal intervals, left axis deviation, left anterior fascicular block, possible old anteroseptal infarct, nonspecific T change. Was a procedure done? Was a procedure done?: No CP Differential Dx Differential Diagnosis: Anxiety / Panic Attack, Electrolyte Disorder, Other (UTI, viral syndrome, among others) Differential Diagnosis: CHF, HTN Essential, HTN Accelerated Differential Diagnosis: Pneumonia X-Ray, Labs, Meds, VS Vital Signs Date Time Temp Pulse Resp B/P (MAP) Pulse Ox O2 Delivery O2 Flow Rate FiO2 03/06/25 15:19 97.9 60 16 110/78 (89) 99 97.9 03/06/25 11:35 71 03/06/25 10:27 98.4 90 16 114/85 96 98.4 Lab Test 03/06/25 12:09 03/06/25 11:11 03/06/25 10:46 Range/Units Troponin I High Sensitivity 6 7 </=54 ng/L White Blood Count 6.4 4.4-10.8 10^3/uL Red Blood Count 4.41 L 4.5-5.90 10^6/uL Hemoglobin 13.9 13.5-17.5 g/dL Hematocrit 40.2 L 41.0-53.0 % Mean Corpuscular Volume 90.9 80.0-100.0 fL Mean Corpuscular Hemoglobin 31.4 28.0-32.0 pg Mean Corpuscular Hemoglobin Concent 34.5 32.0-36.0 g/dL Red Cell Distribution Width 14.4 H 11.8-14.3 % Platelet Count 288 140-450 10^3/uL Mean Platelet Volume 7.3 6.9-10.8 fL Neutrophils (%) (Auto) 79.8 37.0-80.0 % Lymphocytes (%) (Auto) 15.3 10.0-50.0 % Monocytes (%) (Auto) 4.3 0.0-12.0 % Eosinophils (%) (Auto) 0.3 0.0-7.0 % Basophils (%) (Auto) 0.3 0.0-2.0 % Neutrophils # (Auto) 5.1 1.6-8.6 10 ^3/uL Lymphocytes # (Auto) 1.0 0.4-5.4 10 ^3/uL Monocytes # (Auto) 0.3 0-1.3 10 ^3/uL Eosinophils # (Auto) 0 0-0.8 10 ^3/uL Basophils # (Auto) 0 0-0.2 10 ^3/uL Nucleated Red Blood Cells 0.1 % Sodium Level 138 136-145 mmol/L Potassium Level 3.8 3.5-5.1 mmol/L Chloride Level 104 98-107 mmol/L Carbon Dioxide Level 25 20-31 mmol/L Anion Gap 9 5-15 Blood Urea Nitrogen 10 9-23 mg/dL Creatinine 0.90 0.700-1.30 mg/dL Glomerular Filtration Rate Calc 94 >90 mL/min BUN/Creatinine Ratio 11.1 10.0-20.0 Serum Glucose 113 H 74-106 mg/dL Calcium Level 9.3 8.7-10.4 mg/dL B-Type Natriuretic Peptide 22.23 0-100 pg/mL Urine Color Colorless Yellow Urine Clarity Clear Clear Urine pH 6.5 5.0-9.0 Urine Specific [place] 1.005 1.001-1.035 Urine Protein Negative Negative Urine Ketones Negative Negative Urine Blood Negative Negative /uL Urine Nitrite Negative Negative Urine Bilirubin Negative Negative Urine Urobilinogen Normal Negative mg/dL Urine Leukocyte Esterase Negative Negative /uL Urine RBC None seen 0 - 3 /hpf Urine Microscopic WBC 0-3 /HPF Urine Squamous Epithelial Cells None seen <5 /hpf Urine Bacteria None seen None Seen /hpf Urine Glucose Normal Normal mg/dL [place] [id number] Ph: [phone] DIAGNOSTIC IMAGING Diagnostic Imaging Report : [id number] Signed PATIENT: CHARAN LI MACCT: [id number] UNIT: [id number] : 1960 LOC: ER ROOM / BED: / AGE / SEX: 65 / M ADM STATUS: REG ER SERVICE [id number] ORDERING PHYSICIAN: RENATO SPRAGUE MD PROCEDURE(s): CXRP - CHEST PORTABLE REASON: high bp ORDER NUMBER(s): [id number], ACCESSION NUMBER(s): [id number] XY CHEST PORTABLE, HISTORY: high bp COMPARISON: XY CHEST PORTABLE on DOS: 05/31/24, XY CHEST PORTABLE on DOS: 02/10/24 XY CHEST PORTABLE on DOS: 05/31/24, XY CHEST PORTABLE on DOS: 02/10/24 TECHNICAL DATA: 1 view of the chest was obtained. FINDINGS: Lines and tubes: None Cardiomediastinal silhouette: normal Pulmonary vasculature: normal Lung expansion: normal Lung airspace: normal Lung interstitium: normal Pleura: normal Pneumothorax: no Bones: Unremarkable Other: no IMPRESSION: No acute intrathoracic abnormality. ATED BY: DARRIUS HILL MD DICTATED DATE/TIME: 03/06/251106 SIGNED BY: DARRIUS HILL MD SIGNED DATE/TIME: 03/06/251106 CC: X-Ray, Labs, Meds, VS Comment 65-year-old male with a history of hypertension, diabetes, BPH and UTIs presenting complaining of elevated blood pressure at home and concerned that he may have an infection Vitals unremarkable. Blood pressure 114/85. Exam unremarkable Rhythm strip independently interpreted by me: Sinus rhythm, rate 71, no ectopy. Chest x-ray unremarkable CBC, basic metabolic panel, BNP, 2 serial troponins and UA unremarkable for any abnormality of acute significance Patient treated with the following in the ED: Tylenol 1 g p.o. for headache On re-evaluation, he was well-appearing with stable vitals and neurologically intact. Patient appears stable for discharge with close outpatient follow-up with his primary physician for possible medication adjustment. Time of 1ST Reevaluation: 13:05 Reevaluation 1ST: Improved Patient Education/Counseling: Diagnosis, Treatment Family Education/Counseling: No Family Present SEPSIS Sepsis Screen Date sepsis recognized/suspect: Mar 06, 2025 Time Sepsis recognized/suspect: 102 Recent Procedure: No On Antibiotic Therapy: No Respiratory Rate >20: No Heart Rate >90: No Temp<36 C (96.8 F) or >38.3 C: No SBP <90 or MAP <65 mmHG: No New Acute Mental Status Change: No Is the patient on CPAP, BIPAP,: No Physician Orders Chest Portable (03/06/25 10:47) Electrocardigram (03/06/25 10:47) Vital Signs Date Time Temp Pulse Resp B/P (MAP) Pulse Ox O2 Delivery O2 Flow Rate FiO2 03/06/25 15:19 97.9 60 16 110/78 (89) 99 97.9 03/06/25 11:35 71 03/06/25 10:27 98.4 90 16 114/85 96 98.4 Laboratory Tests Test 03/06/25 11:11 White Blood Count 6.4 10^3/uL (4.4-10.8) Departure 1 Departure Time of Disposition: 13:10 Impression: Primary Impression: Headache Disposition: 01 HOME / SELF CARE / HOMELESS Condition: Stable Additional Instructions: Your blood tests were unremarkable. Your urine test was unremarkable. Your chest x-ray was normal. There was no evidence of any infection, and your blood pressure is normal. Follow-up with your primary doctor in 1-2 days for blood pressure check and possible medication adjustment. Continue current medications as prescribed. Discharged With: Relative Critical Care Note Critical Care Time?: No Stability Stability form required: No Heart Score Heart Score: Heart Score Response (Comments) Value History N/A 0 EKG N/A 0 Age N/A 0 Risk Factors N/A 0 Troponin N/A 0 Total 0 I personally scribed for RENATO SPRAGUE MD ([email or web address]) on 03/06/25 at 11:45. Electronically submitted by Bert Dodson ([email or web address]). RENATO SPRAGUE MD Mar 06, 2025 11:45
[2025-03-06 11:47] LABS: Anion Gap 9 (5-15); Carbon Dioxide 25 mmol/L (20-31)
[2025-03-06 11:49] LABS: BUN/Creatinine Ratio 11.1 (10.0-20.0); Blood Urea Nitrogen 10 mg/dL (9-23)
[2025-03-06 11:50] LABS: Glucose 113 mg/dL (74-106)
[2025-03-06 12:34] LABS: Urine Protein, UAD Negative (Negative)
[2025-03-06] MEDS: ACETAMINOPHEN 500 MG TAB or CAP PO ONE (17:01)
[2025-03-06 17:04] VITALS: BP 124/84; TEMP 98
[2025-03-06 17:05] VITALS: PULSE 57; RESP 15; O2SAT 96
--- NOTE | 2025-03-10 09:14 | ECG ---
[facility] Test Date: 2025-03-06 Test Time: 11:32:55 Pat Name: CHARAN LI Department: Room: Gender: M [employer]: FARHAD : 1960 Requested By: RENATO BOOKER Order Number: [id number] Reading MD: Quinton Arias Measurements Intervals [place] Rate: 71 P: 23 VA: 161 QRS: -46 QRSD: 90 T: 1 QT: 390 QTc: 424 Interpretive Statements Sinus rhythm Probable left atrial enlargement Left anterior fascicular block Consider anterior infarct Electronically Signed On 03-10-2025 18:05:58 PDT by Quinton Arias Please click the below link to view image of tracing.
== END 2025-03-06 17:09 | disposition home or self-care (01) ==
LOC: ER 10:26
DX: I10 Essential (primary) hypertension (principal); R51.9 Headache, unspecified; E11.9 Type 2 diabetes mellitus without complications; Z79.899 Other long term (current) drug therapy; Z87.440 Personal history of urinary (tract) infections; Z98.890 Other specified postprocedural states
CPT/HCPCS: 36415; 71045; 80048; 81001; 82947; 83880; 84484; 85025; 93005

== ENCOUNTER 2025-07-08 12:39 | Emergency (ER) | payer OTHER, MEDICAID ==
[~2025-07-08] VITALS: Ht 165.1 cm; Wt 86.9 kg
--- NOTE | 2025-07-08 13:55 | ED.PDOC ---
History of Present Illness HPI Comments 65 year old male presented with shaking and back stiffness primarily at night, resulting in sleep disturbances onset 1 day. The patient reported experiencing shaking and back stiffness, particularly at night, which significantly disrupted sleep for the past two days. The patient mentioned that the symptoms temporarily alleviated after urination but then returned. The patient expressed uncertainty about the cause, dismissing the possibility of sepsis. The patient did not report eating dinner the previous night and mentioned a history of similar symptoms. The patient noted that blood pressure was usually normal by the time of medical visits, with self-reported readings typically between 120/80 mmHg and 130/80 mmHg. The patient did not report any back injuries or surgeries, although there were unspecified back injuries in the distant past. No urinary symptoms such as blood in the urine or burning with urination were reported. Additionally , the patient mentioned feeling bloated but denied abdominal pain, coughing up blood, or other concerning symptoms. Chief Complaint: Back Pain Time Seen by MD: 13:50 Reviewed Notes: Medications, Allergies Allergies: Coded Allergies: NO KNOWN ALLERGIES (Unverified , 02/10/24) Home Meds Active Scripts Methocarbamol (Methocarbamol) 500 Mg Tab, 500 MG PO Q8HP PRN for 10 Days, #30 TAB 0 Refills Prov:KALEE LAWRENCE NP 07/08/25 Clonidine Hydrochloride (Clonidine Hcl) 0.2 Mg Tab, 1 TAB PO DAILY PRN, #20 TAB Prov:RIKKI CROW 08/16/24 Ibuprofen (Ibuprofen) 800 Mg Tab, 1 TAB PO TID, #30 TAB Prov:RIKKI CROW 08/16/24 Metronidazole (Flagyl) 500 Mg Tab, 500 MG PO TID for 7 Days, #21 TAB Prov:JOAO SALOMON MD 06/01/24 Ciprofloxacin Hcl (Cipro) 500 Mg Tab, 1 TAB PO BID, #14 TAB Prov:JOAO SALOMON MD 06/01/24 Clonidine Hydrochloride (Clonidine Hcl) 0.2 Mg Tab, 1 TAB PO BIDP PRN, #10 TAB 0 Refills To be used if systolic pressures above 160 or diastolic pressures above 90. Prov:OMAR DURANT PAC 03/10/24 Reported Medications Tamsulosin Hcl (Tamsulosin Hcl) 0.4 Mg Cap, 1 CAP PO DAILY 05/31/24 Losartan Potassium (Losartan Potassium) 50 Mg Tab, 50 MG PO BID, TAB 02/11/24 Amlodipine Besylate (Amlodipine Besylate) 10 Mg Tab, 1 TAB PO DAILY, #30 TAB 5 Refills 02/11/24 Information Source: Patient Mode of Arrival: Ambulatory Severity: Moderate Timing: Days Duration: Since onset Prehospital treatment: None Past Medical History PAST MEDICAL HISTORY: DM, HTN, UTI'S Surgical History: Hernia Repair Family History Family History: Reviewed,noncontributory to illness Social History Smoker: Non-Smoker Alcohol: Denies ETOH Use Drugs: Denies Drug Use Lives In: Home All Other Systems: Reviewed and Negative (as per HPI) Physical Exam General Appearance: Normal HEENT: Normal ENT Inspection, Pharynx Normal, TMs Normal Neck: Full Range of Motion, Non-Tender, Normal, Normal Inspection Respiratory: Chest Non-Tender, Lungs Clear, No Accessory Muscle Use, No Respiratory Distress, Normal Breath Sounds Cardiovascular: No Edema, No JVD, No Murmur, No Gallop, Normal Peripheral Pulses, Regular Rate/Rhythm Breast Exam: Deferred Gastrointestinal: No Organomegaly, Non Tender, No Pulsatile Mass, Normal Bowel Sounds, Soft Genitalia: Deferred Pelvic: Deferred Rectal: Deferred Extremities: No calf tenderness, Normal capillary refill, Normal inspection, Normal range of motion, Non-tender, No pedal edema Musculoskeletal : Apperance: Normal Neurologic: Alert, industrial hygiene technician II-XII nml as Tested, No Motor Deficits, Normal Affect, Normal Mood, No Sensory Deficits Cerebellar Function: Normal Reflexes: Normal Skin: Dry, Normal Color, Warm Lymphatic: No Adenopathy Was a procedure done? Was a procedure done?: No Differential Dx Considerations may include: other X-Ray, Labs, Meds, VS Vital Signs Date Time Temp Pulse Resp B/P (MAP) Pulse Ox O2 Delivery O2 Flow Rate FiO2 07/08/25 15:03 64 17 97 Room Air 07/08/25 15:03 97.7 78 16 134/87 (103) 97 97.7 07/08/25 12:40 97.9 104 18 122/78 96 97.9 Lab Test 07/08/25 13:08 Range/Units White Blood Count 6.7 4.4-10.8 10^3/uL Red Blood Count 4.28 L 4.5-5.90 10^6/uL Hemoglobin 13.1 L 13.5-17.5 g/dL Hematocrit 39.3 L 41.0-53.0 % Mean Corpuscular Volume 91.7 80.0-100.0 fL Mean Corpuscular Hemoglobin 30.5 28.0-32.0 pg Mean Corpuscular Hemoglobin Concent 33.3 32.0-36.0 g/dL Red Cell Distribution Width 14.0 11.8-14.3 % Platelet Count 305 140-450 10^3/uL Mean Platelet Volume 7.2 6.9-10.8 fL Neutrophils (%) (Auto) 70.6 37.0-80.0 % Lymphocytes (%) (Auto) 23.0 10.0-50.0 % Monocytes (%) (Auto) 5.7 0.0-12.0 % Eosinophils (%) (Auto) 0.3 0.0-7.0 % Basophils (%) (Auto) 0.4 0.0-2.0 % Neutrophils # (Auto) 4.7 1.6-8.6 10 ^3/uL Lymphocytes # (Auto) 1.5 0.4-5.4 10 ^3/uL Monocytes # (Auto) 0.4 0-1.3 10 ^3/uL Eosinophils # (Auto) 0 0-0.8 10 ^3/uL Basophils # (Auto) 0 0-0.2 10 ^3/uL Nucleated Red Blood Cells 0.1 % Sodium Level 143 136-145 mmol/L Potassium Level 3.9 3.5-5.1 mmol/L Chloride Level 105 98-107 mmol/L Carbon Dioxide Level 28 20-31 mmol/L Anion Gap 10 5-15 Blood Urea Nitrogen 7 L 9-23 mg/dL Creatinine 0.95 0.700-1.30 mg/dL Glomerular Filtration Rate Calc 88 >90 mL/min BUN/Creatinine Ratio 7.4 L 10.0-20.0 Serum Glucose 100 74-106 mg/dL Calcium Level 9.6 8.7-10.4 mg/dL X-Ray, Labs, Meds, VS Comment 65 year old male presented with shaking and back stiffness primarily at night, resulting in sleep disturbances onset 1 day Patient arrives alert and oriented, ABC's intact, afebrile, vital signs stable, saturating well in room air labs were ordered. CBC was ordered to exclude anemia, blood loss, or infection. BMP was ordered to exclude electrolyte abnormalities, renal failure, dehydration, hyperglycemia The patient presented with nocturnal shaking and back stiffness, which alleviated temporarily with urination. The differential diagnosis included possible muscle spasms or dehydration-related symptoms due to the nighttime onset and temporary relief with urination. The absence of urinary symptoms such as burning or hematuria suggested a lower likelihood of a urinary tract infection. The patient's report of feeling bloated without abdominal pain or other gastrointestinal symptoms suggested bloating might be unrelated to the primary complaint. PLAN: - Treatment: Prescribed muscle relaxers. - Tests: Ordered blood work to rule out infection and anemia. - Patient Education: Discussed the importance of monitoring symptoms and maintaining a regular blood pressure log. - Follow-Up: Advised follow-up appointment if symptoms persist or worsen. - Disposition: The patient was advised to provide a urine sample for further evaluation. On reevaluation, patient had symptomatic improvement. Patient is stable for discharge at this time. External notes reviewed. Test results and diagnostic imaging interpreted. All diagnostic findings, discharge care, education and instructions provided Follow-up with PCP in 2 to 3 days Patient verbalized understanding and agreed to treatment plan Vital signs stable, afebrile, no acute distress noted Patient ambulatory with strong steady gait Advised to return precautions for any new or worsening symptoms, return to ER immediately for re-evaluation Patient is aware that the purpose of this visit was for an acute medical emergency requiring emergent stabilization. Chronic conditions, including malignancies have not been ruled out. Patient is instructed to follow up with PCP as directed and discharge instructions for continued care and workup. If unable to arrange follow-up, patient is to return to the emergency department for reassessment. Patient (parent or legal guardian if applicable) was given verbal and written discharge instructions and acknowledges understanding. Time of 1ST Reevaluation: 14:20 Reevaluation 1ST: Improved Patient Education/Counseling: Diagnosis, Treatment Family Education/Counseling: No Family Present SEPSIS Sepsis Screen Date sepsis recognized/suspect: Jul 08, 2025 Time Sepsis recognized/suspect: 1242 Recent Procedure: No On Antibiotic Therapy: No Respiratory Rate >20: No Heart Rate >90: Yes Temp<36 C (96.8 F) or >38.3 C: No SBP <90 or MAP <65 mmHG: No New Acute Mental Status Change: No Is the patient on CPAP, BIPAP,: No Vital Signs Date Time Temp Pulse Resp B/P (MAP) Pulse Ox O2 Delivery O2 Flow Rate FiO2 07/08/25 15:03 64 17 97 Room Air 07/08/25 15:03 97.7 78 16 134/87 (103) 97 97.7 07/08/25 12:40 97.9 104 18 122/78 96 97.9 Laboratory Tests Test 07/08/25 13:08 White Blood Count 6.7 10^3/uL (4.4-10.8) Departure 1 Departure Time of Disposition: 14:57 Impression: Primary Impression: Back pain Qualified Codes: M54.9 - Dorsalgia, unspecified Disposition: 01 HOME / SELF CARE / HOMELESS Condition: Stable e-Prescriptions Methocarbamol (Methocarbamol) 500 Mg Tab 500 MG PO Q8HP PRN for 10 Days, #30 TAB 0 Refills Prov: KALEE LAWRENCE NP 07/08/25 Discharged With: Self Critical Care Note Critical Care Time?: No Stability Stability form required: No Heart Score Heart Score: Heart Score Response (Comments) Value History N/A 0 EKG N/A 0 Age N/A 0 Risk Factors N/A 0 Troponin N/A 0 Total 0 I personally scribed for KALEE LAWRENCE NP ([email or web address]) on 07/08/25 at 13:55. Electronically submitted by Karen Glynn ([email or web address]). KALEE LAWRENCE NP Jul 08, 2025 13:55
[2025-07-08 14:23] LABS: Hematocrit 39.3 % (41.0-53.0); Hemoglobin 13.1 g/dL (13.5-17.5); Mean Corpuscular Hemoglobin 30.5 pg (28.0-32.0); Mean Corpuscular Volume 91.7 fL (80.0-100.0); Nucleated Red Blood Cells % 0.1 %
[2025-07-08 14:31] LABS: Chloride 105 mmol/L (98-107); Potassium 3.9 mmol/L (3.5-5.1); Sodium 143 mmol/L (136-145)
[2025-07-08 14:32] LABS: Anion Gap 10 (5-15); Carbon Dioxide 28 mmol/L (20-31)
[2025-07-08 14:33] LABS: Calcium 9.6 mg/dL (8.7-10.4)
[2025-07-08 14:37] LABS: Glucose 100 mg/dL (74-106)
[2025-07-08 14:38] LABS: BUN/Creatinine Ratio 7.4 (10.0-20.0)
[2025-07-08 14:39] LABS: Blood Urea Nitrogen 7 mg/dL (9-23)
[2025-07-08] MEDS ORDERED: METH-1181 PO (14:57)
[2025-07-08 15:03] VITALS: BP 134/87; PULSE 64; RESP 17; TEMP 97.7; O2SAT 97
== END 2025-07-08 15:05 | disposition home or self-care (01) ==
LOC: ER 12:39
DX: M54.9 Dorsalgia, unspecified (principal); I10 Essential (primary) hypertension; E11.9 Type 2 diabetes mellitus without complications; Z79.899 Other long term (current) drug therapy; Z98.890 Other specified postprocedural states; Z87.440 Personal history of urinary (tract) infections; Z79.1 Long term (current) use of non-steroidal anti-inflammatories (NSAID)
CPT/HCPCS: 36415; 80048; 85025